=== PATIENT | female | born 1955 | race Caucasian/White ===

== ENCOUNTER 2023-05-04 10:38 | Outpatient (OUT) | payer MEDICARE, BC, SELFPAY ==
--- NOTE | 2023-05-04 10:47 | MM_ITS ---
Patient Name: TARIQ CHRISTINA MR#: [id number] : 1955 Exam Date: 05/04/2023 Ordering Doctor: MR. Fercho Louis PA-C RADIOLOGY REPORT PROCEDURE: MM TOMOSYNTHESIS SCREENING BI COMPARISON: MG MAMM SCREEN 3D HOMER CAD, 05/02/2022. MG MAMM SCREEN 3D HOMER CAD, 04/21/2021. MG MAMM SCREEN HOMER W CAD, 02/09/2020. MG MAMM HOMER SCRN W CAD DIG, 12/09/2012. INDICATIONS: Screening Calculator Name NCI Breast Cancer Risk Assessment Tool 5 Year Breast Cancer Risk 1.70% Lifetime Breast Cancer Risk 5.70% Personal Breast Cancer No Personal Ovarian Cancer No Treatments None Family Cancers Mother with leukemia cancer at age 74. LOCATION: [facility] BREAST COMPOSITION: Scattered areas fibroglandular density. FINDINGS: DIAGNOSTIC CATEGORY 1--NEGATIVE. RIGHT BREAST: No significant suspicious finding. No significant change has occurred. LEFT BREAST: No significant suspicious finding. No significant change has occurred. RECOMMENDATIONS: ROUTINE MAMMOGRAM AND CLINICAL EVALUATION IN 12 MONTHS. PLEASE NOTE: A NORMAL MAMMOGRAM DOES NOT EXCLUDE THE POSSIBILITY OF BREAST CANCER. A CLINICALLY SUSPICIOUS PALPABLE LUMP SHOULD BE BIOPSIED. Dictated by: Elliott Pedroza M.D. on 05/04/2023 at 14:46 Approved by: Elliott Pedroza M.D. on 05/04/2023 at 14:49
== END 2023-05-04 10:39 | disposition home or self-care (01) ==
LOC: MAMMO 10:40
PROVIDERS: PCP Physician Assistant; Visit Provider Physician Assistant
DX: Z12.31 Encounter for screening mammogram for malignant neoplasm of breast (principal); Z80.6 Family history of leukemia
CPT/HCPCS: 77063; 77067

== ENCOUNTER 2024-06-10 11:04 | Outpatient (OUT) | payer MEDICARE, BC, SELFPAY ==
--- NOTE | 2024-06-10 11:07 | MM_ITS ---
Patient Name: TARIQ CHRISTINA MR#: [id number] : 1955 Exam Date: 06/10/2024 Ordering Doctor: Non-Staff Physician RADIOLOGY REPORT PROCEDURE: MM TOMOSYNTHESIS SCREENING BI COMPARISON: MM TOMOSYNTHESIS SCREENING BI, 05/04/2023. MG MAMM SCREEN 3D HOMER CAD, 05/02/2022. INDICATIONS: Screening Calculator Name NCI Breast Cancer Risk Assessment Tool 5 Year Breast Cancer Risk 1.70% Lifetime Breast Cancer Risk 5.50% Personal Breast Cancer No Personal Ovarian Cancer No Treatments None Family Cancers Mother with leukemia cancer at age 74. LOCATION: [facility] BREAST COMPOSITION: There are scattered areas of fibroglandular density. FINDINGS: DIAGNOSTIC CATEGORY 1--NEGATIVE. NO CHANGE FROM COMPARISON ASSESSMENT. Scattered benign-appearing calcifications are present. Scattered benign-appearing lymph nodes are present. RIGHT BREAST: No significant suspicious finding. LEFT BREAST: No significant suspicious finding. RECOMMENDATIONS: ROUTINE MAMMOGRAM AND CLINICAL EVALUATION IN 12 MONTHS. PLEASE NOTE: A NORMAL MAMMOGRAM DOES NOT EXCLUDE THE POSSIBILITY OF BREAST CANCER. A CLINICALLY SUSPICIOUS PALPABLE LUMP SHOULD BE BIOPSIED. Dictated by: Nato Reynolds MD on 06/10/2024 at 12:52 Approved by: Nato Reynolds MD on 06/10/2024 at 12:53
--- OUTSIDE RECORDS SUMMARY | 2024-06-10 11:19 | XMS_ITS | CCD ---
Author Organization [facility] CliniSyri Care Team Providers Care Cut Out Press Operator Name Role Phone DR LETICIA ROBERTS Admitting Unavailable ALEJANDRA, DR KELLY Attending Unavailable ALEJANDRA, DR KELLY Primary Care Unavailable ALEJANDRA, DR KELLY Consulting Unavailable [place], DR NOE Flores Consulting Unavailable NO PCP, NO PCP Primary Care Unavailable SUZIE OSCAR Attending Unavailable DEBBIE ADLER Admitting Unavailable GREGG FUENTES Consulting Unavailable EHSAN CAGLE Consulting Unavailhuang e FREDIS AGUIRRE Consulting Unavailable RICH VENTURA Consulting Unavailable SALONI DAI Referring Unavailable NO PCP, NO PCP Primary Care Unavailable ALIZE TUCKER Referring Unavailable NO PCP, NO PCP Primary Care Unavailable RAMONA HUANG Admitting Unavailabl e RAMONA HUANG Attending Unavailabl e NO PCP, NO PCP Primary Care Unavailable FREDDY DELATORRE Consulting Unavailable NILSA VANN Referring Unavailable NO PCP, NO PCP Primary Care Unavailable SALONI DAI Attending Unavailable NO PCP, NO PCP Primary Care Unavailable SALONI DAI Attending Unavailable SALONI DAI Referring Unavailable NO PCP, NO PCP Primary Care Unavailable WEININGER, ARMIN Y Referring Unavailable ERLINDAINGER, ARMIN Y Primary Care Unavailable Lynn Brown Attending Hortencia Louis PA-C, Fercho Espinosa Primary Care Mor Rajput MD, Fercho Bates Attending Mor Louis PA-C, Fercho Espinosa Primary Care Mor Louis PA-C, Fercho Espinosa Primary Care Mor Rajput MD, Fercho Bates Attending Mor Louis PA-C, Fercho Espinosa Primary Care Mor Rajput MD, Fercho Bates Attending Mor Rajput MD, Fercho Bates Attending Mor Louis PA-C, Fercho Espinosa Primary Care Mor Rajput MD, Fercho Bates Attending Mor Louis PA-C, Fercho Espinosa Primary [facility] Mor Rajput MD, Fercho Bates Attending Mor Louis PA-C, Fercho Espinosa Primary Care Mor Rajput MD, Fercho Baets Attending Mor Louis PA-C, Fercho Espinosa Primary Care Mor Mckoy CHANNELER INSOLE-SPECIAL EFFECTS SPECIALIST, Lynn Cota Attending Hortencia DRAPERC, Fercho Espinosa Primary Care Mor Mckoy CHANNELER INSOLE-SPECIAL EFFECTS SPECIALIST, Lynn Cota Attending Hortencia DRAPREC, Fercho Espinosa Primary Care Mor Mckoy CHANNELER INSOLE-SPECIAL EFFECTS SPECIALIST, Lynn Cota Attending Hortencia DRAPERC, Fercho Espinosa Primary Care Mor gifford Allergies Allergy Classification Reported Allergen(s) Allergy Type Date of Onset Reaction(s) Facility (3 sources) Penicillins; Translations: [PENICILLINS] Propensity to adverse reactions to drug (disorder) [facility] Repository Problems Active Problems Problem Classification Problem Date Documented Date Episodic/Chronic Disorders of lipid metabolism (1 source) Hyperlipidemia, unspecified; Translations: [Hyperlipidemia, unspecified] Onset: 05-12-2024 Chronic Essential hypertension (1 source) Essential (primary) hypertension; Translations: [Essential (primary) hypertension] Onset: 05-12-2024 Chronic Other nervous system disorders (1 source) Difficulty in walking, not elsewhere classified; Translations: [Difficulty in walking, not elsewhere classified] Onset: 01-30-2024 Chronic Other screening for suspected conditions (not mental disorders or infectious disease) (4 sources) Encounter for screening mammogram for malignant neoplasm of breast; Translations: [ENC SCR MAMMO MALIG NEOPLASM BREAST] Onset: 05-02-2022 Episodic Paralysis (1 source) Cauda equina syndrome; Translations: [Cauda equina syndrome] Onset: 01-25-2024 Chronic Residual codes; unclassified (1 source) Family history of leukemia; Translations: [FAMILY HISTORY OF LEUKEMIA] Onset: 05-07-2022 Episodic Spondylosis; intervertebral disc disorders; other back problems (1 source) Other intervertebral disc displacement, lumbosacral region; Translations: [Other intervertebral disc displacement, lumbosacral region] Onset: 01-29-2024 Chronic Unclassified (1 source) Angelina Carrasco Onset: 01-23-2024 Past or Other Problems Problem Classification Problem Date Documented Date Episodic/Chronic Genitourinary symptoms and ill-defined conditions (1 source) Retention of urine, unspecified; Translations: [Retention of urine, unspecified] Onset: 01-23-2024 Episodic Other connective tissue disease (2 sources) Other symptoms and signs involving the musculoskeletal system; Translations: [Other symptoms and signs involving the musculoskeletal system] Onset: 01-23-2024 Episodic Spondylosis; intervertebral disc disorders; other back problems (4 sources) Radiculopathy, site unspecified; Translations: [Backache] Onset: 01-23-2024 Episodic Results Test Name Value Interpretation Reference Range [facility] Pain Management Office/Clini c Noteon 05-27-2024 Pain Management Office/Clinic Note Chief Complaint rigth leg and bilateral foot pain History of Present Illness Patient presents today for evaluation regarding chronic low back pain pain into right buttock. Patient underwent the second and a course of 2 diagnostic bilateral L4-5, L5-S1 DMR block May 14, 2024 and reports greater than 80% improvement of pain initially in the 2 to 4-hour diagnostic timeframe. Specifically, patient had rated preoperative pain on a scale of 0-10 as an 8 with reduction of pain to a 1 following DMR block with relief lasting approximately 4 hours. Patient reports pain returned to baseline at hour 5 Patient has engaged in a 6 week course of provider directed, home based physiological therapies within the last 3 months. In addition, a six-week trial of activity modification has failed to give reprieve. Patient has also failed to respond optimally to oral analgesic regimen Oswestry Disability Form AM Behavior: Same PM Pain Intensity: The pain is moderate at the moment PM Opioid prescription status Date: 11/01/17 Day Progresses Behavior: Same PM Personal Care: I can look after myself but it causes extra pain PM Last utox: none PM Behavior: Same PM Sitting: I can only sit in my favorite chair as long as I like PM Last ORT/Med Mgmt Agreement: 02/14/24 Pain location and laterality: rigth leg and bilateral foot pain PM Pain Lifting: Pain prevents me from lifting heavy weights off the floor, but I can manage if they are conveniently placed eg. on a table Pain quality: Burning PM Walking: Pain prevents me from walking more than 1 mile Pain Pattern: Constant PM Standing: Pain prevents me from standing form more than 1 hour Pain rate at rest: 4 PM Sleeping: My sleep is occasionally disturbed by pain Pain rate with activity: 5 PM Sex Life: My sex life is normal and causes no pain/NA Sitting: Alleviating PM Social Life: Pain has restricted my social life and I do not go out as often Standing: Aggravating PM Traveling: Pain is bad, but I manage journeys over 2 hours Walking: Aggravating PM Oswestry Score: 30 Sensory impairment location: numbness/tingling at times bilateral foot PM Oswestry Score Interpretation: 21% to 40% Moderate Disability: The patient experiences more pain and difficulty with travel, social life, sitting, lifting and standing, and may be disabled from work. The patient can usually be managed by conservative means. Pain since last visit: Unchanged Procedure 1: Diagnostic facet inj/DMR/MBB Procedure Date 1: 05/14/24 Procedure Comments 1: BILATERAL L4-5, L5-S1 DORSAL MEDIAL BRANCH BLOCK INJECTION Pain Improvement 1: Significant (70-100% relief) Pain Improvement Comments 1: 90% RELEIF X4 HOURS Date Tens: n/a Date Chiropractor: hx Effective Chiropractor: NO HELP Date PT: hx Frequency PT: 1x wk Effective PT: MADE IT WORSE, NO HELP Date Injections: prn Effective Injections: cervical RFA 2017, helpful Date Surgery: n/a Comments Other: HEP-stretching Recent testing: No Loss of bladder/bowel: Denies Demeanor: Pleasant Distress: None Appearance: Appropriate Cognitive impairment: No Feels safe at home: Yes Suicidal/homicidal ideation: No Review of Systems A review of systems was conducted and noted to be negative to the patients presenting complaint unless delineated in HPI. Full details are available on form PM-82 completed by the patient and added to the record on today?s date Denies loss of control of bowel and bladder or saddle paresthesia. Denies suicidal ideation or plan Physical Exam Vitals & Measurements HR: 76 (Peripheral) RR: 16 BP: 131/88 HT: 167 cm General -Appears stated age. No apparent distress. Psychological - Normal mood and affect. HEENT - Normocephalic/Atraumat ic Neurologic-alert and oriented x4 Respiratory - No obvious distress, No shortness of breath. Focus exam- is able to transition from sitting to standing without difficulty walks with a nonantalgic gait. Motor strength 5/5 in all areas assessed in the bilateral lower extremities. Sensory testing intact L1 through S1. Patient does report an increase in low back pain with lumbar facet loading maneuvers, concordant with pain symptoms, which localizes approximate L4 5 and L5-S1 bilaterally Additional Vitals BP Position/Location: Sitting Assessment/Plan 1. Lumbosacral spondylosis evaluated today for chronic low back pain secondary to lumbosacral spondylosis. Physical exam findings suggestive patient's pain is mechanical in nature with pain that exacerbates with axial loading maneuvers. Patient garnered 80 to 90% improvement of his lumbar pain in initial diagnostic timeframe consistent with anesthetic agent utilized Therefore, patient has establish candidacy for bilateral L4-5, L5-S1 radiofrequency ablation to be performed under fluoroscopic guidance Patient meets criteria for repeat lumbar radiofrequency ablation at bilateral L4-5, L5-S1 on the basis of: 1. Patient garnered 80% improvement of pain (more content not included)... Normal [facility] COMPLETE BLOOD COUNTon 05-12 Erythrocyte distribution width (RBC) [Ratio] 13.5 % Normal 11.5-15.0 [facility] Comment on above: Performed By: #### C CARA [facility], 31616-2 #### [facility] ([id number]) [address] [place] [address] Hematocrit (Bld) [Volume fraction] 40.3 % Normal 35-47 [facility] Comment on above: Performed By: #### Hemant MARROQUIN [facility], 96790-2 #### [facility] ([id number]) [address], [address] [place] [address] Hemoglobin (Bld) [Mass/Vol] 13.7 g/dL Normal 11.7-15.5 [facility] Comment on above: Performed By: #### Hemant MARROQUIN [facility], 20886-9 #### [facility] ([id number]) [address], [address] [place] [address] MCH (RBC) [Entitic mass] 32.7 pg Normal 27-34 [facility] Comment on above: Performed By: #### Hemant MARROQUIN CMP, 16777-6 #### [facility] ([id number]) [address], [address] [place] [address] MCHC (RBC) [Mass/Vol] 33.9 g/dL Normal 32-36 [facility] Comment on above: Performed By: #### Hemant MARROQUIN CMP, 42139-4 #### [facility] ([id number]) [address], [address] [place] [address] MCV (RBC) [Entitic vol] 96 fL Normal 80-100 [facility] Comment on above: Performed By: #### Hemant MARROQUIN CMP, 26062-5 #### [facility] ([id number]) [address], [address] [place] [address] Platelet mean volume (Bld) [Entitic vol] 8.5 fL Normal 7-12 [facility] Comment on above: Performed By: #### Hemant MARROQUIN CMP, 45227-6 #### [facility] ([id number]) [address], [address] [place] [address] Platelets (Bld) [#/Vol] 252 10*3/uL Normal 150-450 [facility] Comment on above: Performed By: #### Hemant MARROQUIN CMP, 50698-5 #### [facility] ([id number]) [address], [address] [place] [address] RBC COUNT 4.19 X10E12/L Normal 3.80-5.20 [facility] Comment on above: Performed By: #### Hemant MARROQUIN CMP, 64516-0 #### [facility] ([id number]) [address], [address] [place] [address] WBC (Bld) [#/Vol] 5.7 10*3/uL Normal 4.0-11.0 [facility] Comment on above: Performed By: #### C BC, CMP, 42906-7 #### [facility] ([id number]) [address], [address] [place] [address] COMPREHENSIVE METABOLIC PANE Dorian 05-12-2024 Albumin [Mass/Vol] 4.0 g/dL Normal 3.2-5.3 [facility] Comment on above: Performed By: #### Hemant MARROQUIN, CMP, 40292-4 #### [facility] ([id number]) [address], [address] [place] [address] ALP [Catalytic activity/Vol] 74 U/L Normal 39-130 [facility] Comment on above: Performed By: #### Hemant MARROQUIN CMP, 93780-0 #### [facility] ([id number]) [address], [address] [place] [address] ALT [Catalytic activity/Vol] 13 U/L Normal 0-31 [facility] Comment on above: Performed By: #### Hemant MARROQUIN, CMP, 30452-4 #### [facility] ([id number]) [address], [address] [place] [address] Anion gap [Moles/Vol] 8 mmol/L Normal 5-15 [facility] Comment on above: Performed By: #### Hemant MARROQUIN CMP, 04370-7 #### [facility] ([id number]) [address], [address] [place] [address] AST [Catalytic activity/Vol] 13 U/L Normal 0-41 [facility] Comment on above: Performed By: #### Hemant MARROQUIN, CMP, 44950-5 #### [facility] ([id number]) [address], [address] [place] [address] Bilirubin [Mass/Vol] 0.4 mg/dL Normal 0.3-1.2 [facility] Comment on above: Performed By: #### Hemant MARROQUIN, CMP, 64801-4 #### [facility] ([id number]) [address], [address] [place] [address] Calcium [Mass/Vol] 9.1 mg/dL Normal 8.5-10.5 [facility] Comment on above: Performed By: #### Hemant MARROQUIN CMP, 43098-6 #### [facility] ([id number]) [address], [address] [place] [address] Chloride [Moles/Vol] 104 mmol/L Normal 98-109 [facility] Comment on above: Performed By: #### Hemant MARROQUIN CMP, 95949-5 #### [facility] ([id number]) [address], [address] [place] [address] CO2 [Moles/Vol] 28 mmol/L Normal 22-32 [facility] Comment on above: Performed By: #### Hemant MARROQUIN CMP, 96793-7 #### [facility] ([id number]) [address], [address] [place] [address] Creatinine [Mass/Vol] 0.80 mg/dL Normal 0.40-1.00 [facility] Comment on above: Result Comment: METH OD TRACEABLE TO IDMS STANDARD Performed By: #### Hemant MARROQUIN CMP, 70974-1 #### [facility] ([id number]) [address], [address] [place] [address] GFR/1.73 sq M.predicted among non-blacks MDRD (S/P/Bld) [Vol rate/Area] 80 mL/min/{1.73_m2} Normal >59 [facility] Comment on above: Result Comment: Reported eGFR is based on the CKD-EPI 2020 equation that does not use a race coefficient. Performed By: #### Hemant MARROQUIN CMP, 64219-6 #### [facility] ([id number]) [address], [address] [place] [address] Glucose [Mass/Vol] 103 mg/dL High 65-99 [facility] Comment on above: Performed By: #### Hemant BC, CMP, 64383-6 #### [facility] ([id number]) [address], [address] [place] [address] Potassium [Moles/Vol] 3.7 mmol/L Normal 3.5-5.0 [facility] Comment on above: Performed By: #### Hemnat BC, CMP, 14618-7 #### [facility] ([id number]) [address] [place] [address] Protein [Mass/Vol] 6.6 g/dL Normal 6.0-8.0 [facility] Comment on above: Performed By: #### Hemant BC, CMP, 50480-4 #### [facility] ([id number]) [address], [address] [place] [address] Sodium [Moles/Vol] 140 mmol/L Normal 134-146 [facility] Comment on above: Performed By: #### Hemant BC, CMP, 15864-9 #### [facility] ([id number]) [address], [address] [place] [address] Urea nitrogen [Mass/Vol] 12 mg/dL Normal 5-27 [facility] Comment on above: Performed By: #### Hemant BC, CMP, 88384-9 #### [facility] ([id number]) [address] [place] [address] Lipid 1996 panelon 4 Cholesterol [Mass/Vol] 226 mg/dL High 150-200 [facility] Comment on above: Performed By: #### Hemant BC, CMP, 00666-9 #### [facility] ([id number]) [address], [address] [place] [address] Cholesterol in HDL [Mass/Vol] 57 mg/dL Normal >39 [facility] Comment on above: Result Comment: HDL <40 mg/dL - High Risk HDL > or = 40mg/dL- Desirable HDL >60 mg/dL - Negative Risk Performed By: #### Hemant MARROQUIN, CMP, 73794-1 #### [facility] ([id number]) [address], [address] [place] [address] Cholesterol in LDL [Mass/Vol] 118 mg/dL Normal <130 [facility] Comment on above: Result Comment: LDL <100 mg/dL - Desirable LDL >160 mg/dL - High Risk Performed By: #### Hemant MARROQUIN, CMP, 34934-4 #### [facility] ([id number]) [address], [address] [place] [address] Cholesterol in VLDL [Mass/Vol] 51 mg/dL High 0-30 [facility] Comment on above: Performed By: #### Hemant MARROQUIN, SINGH, 91680-3 #### [facility] ([id number]) [address], [address] [place] [address] CHOLESTEROL:HDL 4.0 Normal 1.0-5.0 [facility] Comment on above: Performed By: #### Hemant MARROQUIN, SINGH, 06144-9 #### [facility] ([id number]) [address] [place] [address] Triglyceride [Mass/Vol] 253 mg/dL High 27-150 [facility] Comment on above: Performed By: #### Hemant MARROQUIN, CMP, 16646-9 #### [facility] ([id number]) [address] [place] [address] Pain Management Office/Clini c Noteon 04-29-2024 Pain Management Office/Clinic Note Chief Complaint low back, right buttock/leg & left lower leg pain History of Present Illness Patient presents today with chronic low back pain. Patient underwent the first of two bilateral L4-5, L5-S1 DMR on 04/16/2024 with 100% relief for the first 4 hours. On a scale of 0/10, patient reported preoperatively 7 out of 10 pain and postoperatively reports 0 out of 10 pain at hour 2 and 4. Return to baseline at hour 5. Patient has engaged in a 6 week course of provider directed, home based physiological therapies within the last 3 months. In addition, a six-week trial of activity modification has failed to give reprieve. Patient has also failed to respond optimally to oral analgesic regimen Oswestry Disability Form AM Behavior: Same PM Pain Intensity: The pain is moderate at the moment PM Opioid prescription status Date: 11/01/17 Day Progresses Behavior: Same PM Personal Care: I need some help but manage most of my personal care PM Last ORT/Med Mgmt Agreement: 02/14/24 PM Behavior: Same PM Sitting: I can only sit in my favorite chair as long as I like Pain location and laterality: low back, right buttock/leg & left lower leg pain PM Pain Lifting: I can lift very light weights Pain quality: Aching PM Walking: I can only walk using a stick or crutches Pain Pattern: Constant PM Standing: Pain prevents me from standing form more than 30 minutes Pain rate at rest: 4 PM Sleeping: My sleep is occasionally disturbed by pain Pain rate with activity: 5 PM Sex Life: My sex life is normal and causes no pain/NA Bending: Aggravating PM Social Life: Pain has restricted my social life and I do not go out as often Heat: Alleviating PM Traveling: Pain restricts me to trips of less than 1 hour Lifting: Aggravating PM Oswestry Score: 48 Lying: Alleviating PM Oswestry Score Interpretation: 41% to 60% Severe Disability: Pain remains the main problem in this group but activities of daily living are affected. These patients require a detailed investigation. Medications: Alleviating Standing: Aggravating Walking: Aggravating Sensory impairment location: numbness/tingling in right foot Pain since last visit: Improved Procedure 1: Other therapeutic Procedure Date 1: 04/01/24 Procedure Comments 1: BILATERAL CERVICAL TRIGGER POINT INJECTION Pain Improvement 1: Minimal (0-30% relief) Pain Improvement Comments 1: MINIMAL RELIEF X2 DAYS Procedure 2: Diagnostic facet inj/DMR/MBB Procedure Date 2: 04/16/24 Procedure Comments 2: BILATERAL L4-5, L5-S1 DORSAL MEDIAL BLOCK INJECTION Pain Improvement 2: Significant (70-100% relief) Pain Improvement Comments 2: 100% RELIEF X2 & 4 HOURS IN LOW BACK Date Tens: n/a Date Chiropractor: hx Date PT: hx Comments PT: HEP-stretching Date Injections: prn Date Surgery: n/a Recent testing: No Loss of bladder/bowel: Denies Demeanor: Pleasant Distress: None Appearance: Appropriate Cognitive impairment: No Feels safe at home: Yes Suicidal/homicidal ideation: No Review of Systems A review of systems was conducted and noted to be negative to the patients presenting complaint unless delineated in HPI. Full details are available on form PM-82 completed by the patient and added to the record on today?s date Denies loss of control of bowel and bladder or saddle paresthesia. Denies suicidal ideation or plan Physical Exam Vitals & Measurements HR: 95 (Peripheral) BP: 114/88 HT: 167 cm General -Appears stated age. No apparent distress. Psychological - Normal mood and affect. HEENT - Normocephalic/Atraumat ic Neurologic-alert and oriented x4 Respiratory - No obvious distress, No shortness of breath. Focus exam- is able to transition from sitting to standing without difficulty walks with a nonantalgic gait. Motor strength 5/5 in all areas assessed in the bilateral lower extremities. Sensory testing intact L1 through S1. Patient does report an increase in low back pain with lumbar facet loading maneuvers, concordant with pain symptoms, which localizes approximate L3 4, L4 5 and L5-S1 bilaterally Additional Vitals No qualifying data available. Assessment/Plan 1. Lumbosacral spondylosis Patient has chronic low back pain secondary to lumbosacral spondylosis. Patient underwent initial medial branch block of segmented L4/5, L5-S1 with greater than 80% improvement of pain reported in the initial timeframe consistent with anesthetic utilized. Therefore, patient has establish candidacy for second in a course of 2 diagnostic bilateral medial branch block of L4-5, L5-S1 segment performed under fluoroscopic guidance in an attempt to establish cause and candidacy for radiofrequency ablation 2. Chronic low back pain Medical Decision Making Chronic conditions NOT treated during this visit that affected my overall medical decision making: [HTN] I have reviewed the patient?s medication list for medication interactions/contraind ications and/or for upcoming procedures: [yes] Physici (more content not included)... [facility] Pain Management Office/Clini c Noteon 04-01-2024 Pain Management Office/Clinic Note Chief Complaint neck, low back and right foot pain History of Present Illness Patient presents today for evaluation regarding chronic cervical pain as well as low back pain. Patient underwent sciatic nerve block on the right 03/05/2024 additionally, patient underwent right lumbar TFESI February 20, 2024 reports significant improvement of right lower extremity pain. Patient does report residual low back pain severe enough to affect activities day living and quality of life. Additionally, patient reports some cervical muscle pain . Patient has engaged in a 6 week course of provider directed, home based physiological therapies within the last 3 months. In addition, a six-week trial of activity modification has failed to give reprieve. Patient has also failed to respond optimally to oral analgesic regimen Opioid Risk Assessment Oswestry Disability Form AM Behavior: Better Family History of Substance Abuse: Alcohol, Illegal drugs PM Pain Intensity: The pain is moderate at the moment PM Opioid prescription status Date: 11/01/17 Day Progresses Behavior: Worse Personal History of Substance Abuse: Alcohol PM Personal Care: It is painful to look after myself and I am slow and careful PM Last utox: none PM Behavior: Worse Age Between 16 and 45: No PM Sitting: I can only sit in my favorite chair as long as I like PM Last ORT/Med Mgmt Agreement: 02/14/24 Pain location and laterality: neck, low back and right foot pain History of Preadolescent Sexual Abuse: No PM Pain Lifting: I can lift very light weights Pain quality: Aching Mental Health Condition: No PM Walking: Pain prevents me from walking more than 1 mile Pain Pattern: Constant Depression: Yes PM Standing: Pain prevents me from standing form more than 30 minutes Pain rate at rest: 4 Total Opioid Risk Score: 7 PM Sleeping: My sleep is occasionally disturbed by pain Pain rate with activity: 5 Total Score Risk Category: Moderate risk PM Sex Life: My sex life is normal and causes no pain/NA Cold/Ice: Alleviating PM Social Life: Pain has restricted my social life to my home Heat: Alleviating PM Traveling: Pain restricts me to short necessary journeys under 30 minutes Performance of ADL's: Aggravating PM Oswestry Score: 44 Sitting: Alleviating PM Oswestry Score Interpretation: 41% to 60% Severe Disability: Pain remains the main problem in this group but activities of daily living are affected. These patients require a detailed investigation. Standing: Aggravating Sensory impairment location: numbness and tingling in right foot Procedure 1: Therapeutic nerve root/TFESI Procedure Date 1: 02/20/24 Procedure Comments 1: R L5, S1 Pain Improvement 1: Significant (70-100% relief) Procedure 2: Other therapeutic Procedure Date 2: 03/05/24 Procedure Comments 2: Right Sciatic nerve block Pain Improvement 2: Significant (70-100% relief) Date Tens: NO Date Chiropractor: HX Effective Chiropractor: NO HELP Date PT: presently Frequency PT: 1x wk Effective PT: MADE IT WORSE, NO HELP Date Injections: HX WITH KINDL IN [place] 2008 Effective Injections: cervical RFA 2017, helpful Date Surgery: NO Date Other: NECK BRACE Comments Other: HELPS Recent testing: No Loss of bladder/bowel: Denies Demeanor: Pleasant Distress: Moderate Appearance: Appropriate Cognitive impairment: No Feels safe at home: Yes Suicidal/homicidal ideation: No Family History of Substance Abuse: Alcohol, Illegal drugs Personal History of Substance Abuse: Alcohol Age Between 16 and 45: No History of Preadolescent Sexual Abuse: No Mental Health Condition: No Depression: Yes Total Opioid Risk Score: 7 Total Score Risk Category: Moderate risk Review of Systems A review of systems was conducted and noted to be negative to the patients presenting complaint unless delineated in HPI. Full details are available on form [id number] completed by the patient and added to the record on today?s date Denies loss of control of bowel and bladder or saddle paresthesia. Denies suicidal ideation or plan Physical Exam Vitals & Measurements HR: 71 (Peripheral) RR: 16 BP: 113/87 HT: 167 cm WT: 87 kg (Estimated) WT: 87 kg (Dosing) BMI: 31.2 General -Appears stated age. No apparent distress. Psychological - Normal mood and affect. HEENT - Normocephalic/Atraumat ic Neurologic-alert and oriented x4 Respiratory - No obvious distress, No shortness of breath. Palpatory tenderness cervical paravertebral musculature extending into trapezius/rhomboids with appreciated spasm Focus exam- is able to transition from sitting to standing without difficulty walks with a nonantalgic gait. Motor strength 5/5 in all areas assessed in the bilateral lower extremities. Sensory testing intact L1 through S1. Patient does report an increase in low back pain with lumbar facet loading maneuvers, concordant with pain symptoms, which localizes approximate L4 5 and L5-S1 bilaterally Additional Vitals (more content not included)... Normal [facility] CBC AND AUTO DIFFon 01-30-20 24 ABSOLUTE BASOPHIL 0.0 X10E9/L Normal 0.0-0.2 [facility] Comment on above: Performed By: #### C BCA, CMP ####[facility] ([id number])[address] ABSOLUTE NEUTROPHIL 4.0 X10E9/L Normal 1.5-6.6 [facility] Comment on above: Performed By: #### C CHRISTINA, CMP ####[facility] ([id number])[address] [address] [place] [address] Basophils/100 WBC (Bld) 0.5 % Normal [facility] Comment on above: Performed By: #### C BCA, CMP ####[facility] ([id number])[address] [address] Eosinophils (Bld) [#/Vol] 0.1 10*3/uL Normal 0.0-0.4 [facility] Comment on above: Performed By: #### C BCA, CMP ####[facility] ([id number])[address] [address] [place] [address] Eosinophils/100 WBC (Bld) 1.8 % Normal [facility] Comment on above: Performed By: #### C BCA, CMP ####[facility] ([id number])[address] [address] Erythrocyte distribution width (RBC) [Ratio] 13.0 % Normal 11.5-15.0 [facility] Comment on above: Performed By: #### C BCA, CMP ####[facility] ([id number])[address], [place] [address] Hematocrit (Bld) [Volume fraction] 38.2 % Normal 35-47 [facility] Comment on above: Performed By: #### C BCA, CMP ####[facility] ([id number])[address], [address], [place] [address] Hemoglobin (Bld) [Mass/Vol] 12.6 g/dL Normal 11.7-15.5 [facility] Comment on above: Performed By: #### C BCA, CMP ####[facility] ([id number])[address] [address] [place] [address] Lymphocytes (Bld) [#/Vol] 2.8 10*3/uL Normal 1.0-3.5 [facility] Comment on above: Performed By: #### C BCA, CMP ####[facility] ([id number])[address] [address], [place] [address] Lymphocytes/100 WBC (Bld) 37.1 % Normal [facility] Comment on above: Performed By: #### C BCA, CMP ####[facility] ([id number])[address] [address], [place] [address] MCH (RBC) [Entitic mass] 32.3 pg Normal 27-34 [facility] Comment on above: Performed By: #### C BCA, CMP ####[facility] ([id number])[address] [address] MCHC (RBC) [Mass/Vol] 33.1 g/dL Normal 32-36 [facility] Comment on above: Performed By: #### C BCA, CMP ####[facility] ([id number])[address], [address], [place] [address] MCV (RBC) [Entitic vol] 98 fL Normal 80-100 [facility] Comment on above: Performed By: #### C CHRISTINA, CMP ####[facility] ([id number])[address], [address], [place] [address] Monocytes (Bld) [#/Vol] 0.5 10*3/uL Normal 0-0.9 [facility] Comment on above: Performed By: #### C CHRISTINA, CMP ####[facility] ([id number])[address], [address], [place] [address] Monocytes/100 WBC (Bld) 6.8 % Normal [facility] Comment on above: Performed By: #### C CHRISTINA, CMP ####[facility] ([id number])[address], [address], [place] [address] Neutrophils/100 WBC (Bld) 53.8 % Normal [facility] Comment on above: Performed By: #### C CHRISTINA, CMP ####[facility] ([id number])[address], [address], [place] [address] Platelet mean volume (Bld) [Entitic vol] 8.8 fL Normal 7-12 [facility] Comment on above: Performed By: #### C CHRISTINA, CMP ####[facility] ([id number])[address] [address] [place] [address] Platelets (Bld) [#/Vol] 198 10*3/uL Normal 150-450 [facility] Comment on above: Performed By: #### C CHRISTINA, CMP ####[facility] ([id number])[address] [address] [place] [address] RBC COUNT 3.91 X10E12/L Normal 3.80-5.20 [facility] Comment on above: Performed By: #### C CHRISTINA, CMP ####[facility] ([id number])[address], [address], [place] [address] WBC (Bld) [#/Vol] 7.5 10*3/uL Normal 4.0-11.0 [facility] Comment on above: Performed By: #### C BCA, CMP ####[facility] ([id number])[address], [address], [place] [address] COMPREHENSIVE METABOLIC PANE Dorian 01-30-2024 Albumin [Mass/Vol] 3.8 g/dL Normal 3.2-5.3 [facility] Comment on above: Performed By: #### C BCA, CMP ####[facility] ([id number])[address], [address], [place] [address] ALP [Catalytic activity/Vol] 52 U/L Normal 39-130 [facility] Comment on above: Performed By: #### C BCA, CMP ####[facility] ([id number])[address], [address], [place] [address] ALT [Catalytic activity/Vol] 39 U/L High 0-31 [facility] Comment on above: Performed By: #### C BCA, CMP ####[facility] ([id number])[address], [address], [place] [address] Anion gap [Moles/Vol] 9 mmol/L Normal 5-15 [facility] Comment on above: Performed By: #### C BCA, CMP ####[facility] ([id number])[address], [address], [place] [address] AST [Catalytic activity/Vol] 28 U/L Normal 0-41 [facility] Comment on above: Performed By: #### C BCA, CMP ####[facility] ([id number])[address], [address], [place] [address] Bilirubin [Mass/Vol] 0.4 mg/dL Normal 0.3-1.2 [facility] Comment on above: Performed By: #### C BCA, CMP ####[facility] ([id number])[address] [address], [place] [address] Calcium [Mass/Vol] 8.9 mg/dL Normal 8.5-10.5 [facility] Comment on above: Performed By: #### C BCA, CMP ####[facility] ([id number])[address], [address], [place] [address] Chloride [Moles/Vol] 102 mmol/L Normal 98-109 [facility] Comment on above: Performed By: #### C BCA, CMP ####[facility] ([id number])[address] [address] [address] CO2 [Moles/Vol] 27 mmol/L Normal 22-32 [facility] Comment on above: Performed By: #### C BCA, CMP ####[facility] ([id number])[address] [address], [place] [address] Creatinine [Mass/Vol] 0.80 mg/dL Normal 0.40-1.00 [facility] Comment on above: Result Comment: METH OD TRACEABLE TO IDMS STANDARD Performed By: #### C BCA, CMP ####[facility] ([id number])[address] [address] [place] [address] GFR/1.73 sq M.predicted among non-blacks MDRD (S/P/Bld) [Vol rate/Area] 80 mL/min/{1.73_m2} Normal >59 [facility] Comment on above: Result Comment: Reported eGFR is based on the CKD-EPI 2020 equation that does not use a race coefficient. Performed By: #### C BCA, CMP ####[facility] ([id number])[address] [address], [place] [address] Glucose [Mass/Vol] 115 mg/dL High 65-99 [facility] Comment on above: Performed By: #### C BCA, CMP ####[facility] ([id number])[address], [address], [place] [address] Potassium [Moles/Vol] 3.9 mmol/L Normal 3.5-5.0 [facility] Comment on above: Performed By: #### C BCA, CMP ####[facility] ([id number])[address], [address] [place] [address] Protein [Mass/Vol] 6.1 g/dL Normal 6.0-8.0 [facility] Comment on above: Performed By: #### C BCA, CMP ####[facility] ([id number])[address] [address], [place] [address] Sodium [Moles/Vol] 138 mmol/L Normal 134-146 [facility] Comment on above: Performed By: #### C BCA, CMP ####[facility] ([id number])[address] [address], [place] [address] Urea nitrogen [Mass/Vol] 19 mg/dL Normal 5-27 [facility] Comment on above: Performed By: #### C BCA, CMP ####[facility] ([id number])[address] [address], [place] [address] CBC AND AUTO DIFFon 01-29-20 24 ABSOLUTE BASOPHIL 0.0 X10E9/L Normal 0.0-0.2 [facility] Comment on above: Performed By: #### C BCA, CMP ####[facility] ([id number])[address], [address] [place] [address] ABSOLUTE NEUTROPHIL 4.9 X10E9/L Normal 1.5-6.6 [facility] Comment on above: Performed By: #### C BCA, CMP ####[facility] ([id number])[address], [address] [place] [address] Basophils/100 WBC (Bld) 0.3 % Normal [facility] Comment on above: Performed By: #### C CHRISTINA, CMP ####[facility] ([id number])[address] [address] Eosinophils (Bld) [#/Vol] 0.1 10*3/uL Normal 0.0-0.4 [facility] Comment on above: Performed By: #### C CHRISTINA, CMP ####[facility] ([id number])[address] [address] Eosinophils/100 WBC (Bld) 1.2 % Normal [facility] Comment on above: Performed By: #### C CHRISTINA, CMP ####[facility] ([id number])[address] [address] Erythrocyte distribution width (RBC) [Ratio] 13.2 % Normal 11.5-15.0 [facility] Comment on above: Performed By: #### C CHRISTINA, CMP ####[facility] ([id number])[address] [address] Hematocrit (Bld) [Volume fraction] 38.5 % Normal 35-47 [facility] Comment on above: Performed By: #### C CHRISTINA, CMP ####[facility] ([id number])[address] [address] Hemoglobin (Bld) [Mass/Vol] 13.0 g/dL Normal 11.7-15.5 [facility] Comment on above: Performed By: #### C CHRISTINA, CMP ####[facility] ([id number])[address] [address] Lymphocytes (Bld) [#/Vol] 3.1 10*3/uL Normal 1.0-3.5 [facility] Comment on above: Performed By: #### C CHRISTINA, CMP ####[facility] ([id number])[address] [place] [address] Lymphocytes/100 WBC (Bld) 34.9 % Normal [facility] Comment on above: Performed By: #### C BCA, CMP ####[facility] ([id number])[address] [place] [address] MCH (RBC) [Entitic mass] 32.4 pg Normal 27-34 [facility] Comment on above: Performed By: #### C BCA, CMP ####[facility] ([id number])[address], [address] [place] [address] MCHC (RBC) [Mass/Vol] 33.6 g/dL Normal 32-36 [facility] Comment on above: Performed By: #### C BCA, CMP ####[facility] ([id number])[address], [address] [place] [address] MCV (RBC) [Entitic vol] 96 fL Normal 80-100 [facility] Comment on above: Performed By: #### C BCA, CMP ####[facility] ([id number])[address] [address] [place] [address] Monocytes (Bld) [#/Vol] 0.7 10*3/uL Normal 0-0.9 [facility] Comment on above: Performed By: #### C BCA, CMP ####[facility] ([id number])[address], [address] [place] [address] Monocytes/100 WBC (Bld) 7.8 % Normal [facility] Comment on above: Performed By: #### C BCA, CMP ####[facility] ([id number])[address], [address] [place] [address] Neutrophils/100 WBC (Bld) 55.8 % Normal [facility] Comment on above: Performed By: #### C BCA, CMP ####[facility] ([id number])[address], [address] [address] Platelet mean volume (Bld) [Entitic vol] 8.6 fL Normal 7-12 [facility] Comment on above: Performed By: #### C BCA, CMP ####[facility] ([id number])[address], [address] [address] Platelets (Bld) [#/Vol] 203 10*3/uL Normal 150-450 [facility] Comment on above: Performed By: #### C BCA, CMP ####[facility] ([id number])[address], [address], [place] [address] RBC COUNT 4.00 X10E12/L Normal 3.80-5.20 [facility] Comment on above: Performed By: #### C BCA, CMP ####[facility] ([id number])[address] [address] [place] [address] WBC (Bld) [#/Vol] 8.8 10*3/uL Normal 4.0-11.0 [facility] Comment on above: Performed By: #### C BCA, CMP ####[facility] ([id number])[address], [address], [place] [address] COMPREHENSIVE METABOLIC PANE Dorian 01-29-2024 Albumin [Mass/Vol] 3.8 g/dL Normal 3.2-5.3 [facility] Comment on above: Performed By: #### C BCA, CMP ####[facility] ([id number])[address], [address] [place] [address] ALP [Catalytic activity/Vol] 54 U/L Normal 39-130 [facility] Comment on above: Performed By: #### C BCA, CMP ####[facility] ([id number])[address], [address], [place] [address] ALT [Catalytic activity/Vol] 38 U/L High 0-31 [facility] Comment on above: Performed By: #### C BCA, CMP ####[facility] ([id number])[address], [address], [place] [address] Anion gap [Moles/Vol] 10 mmol/L Normal 5-15 [facility] Comment on above: Performed By: #### C BCA, CMP ####[facility] ([id number])[address], [address], [place] [address] AST [Catalytic activity/Vol] 24 U/L Normal 0-41 [facility] Comment on above: Performed By: #### C BCA, CMP ####[facility] ([id number])[address], [address], [place] [address] Bilirubin [Mass/Vol] 0.3 mg/dL Normal 0.3-1.2 [facility] Comment on above: Performed By: #### C BCA, CMP ####[facility] ([id number])[address], [address], [place] [address] Calcium [Mass/Vol] 8.9 mg/dL Normal 8.5-10.5 [facility] Comment on above: Performed By: #### C BCA, CMP ####[facility] ([id number])[address], [address], [place] [address] Chloride [Moles/Vol] 100 mmol/L Normal 98-109 [facility] Comment on above: Performed By: #### C BCA, CMP ####[facility] ([id number])[address], [address], [place] [address] CO2 [Moles/Vol] 28 mmol/L Normal 22-32 [facility] Comment on above: Performed By: #### C BCA, CMP ####[facility] ([id number])[address] [address] [place] [address] Creatinine [Mass/Vol] 0.75 mg/dL Normal 0.40-1.00 [facility] Comment on above: Result Comment: METH OD TRACEABLE TO IDMS STANDARD Performed By: #### C BCA, CMP ####[facility] ([id number])[address] [address], [place] [address] GFR/1.73 sq M.predicted among non-blacks MDRD (S/P/Bld) [Vol rate/Area] 87 mL/min/{1.73_m2} Normal >59 [facility] Comment on above: Result Comment: Reported eGFR is based on the CKD-EPI 2020 equation that does not use a race coefficient. Performed By: #### C BCA, CMP ####[facility] ([id number])[address] [address] Glucose [Mass/Vol] 117 mg/dL High 65-99 [facility] Comment on above: Performed By: #### C BCA, CMP ####[facility] ([id number])[address] [address] Potassium [Moles/Vol] 3.8 mmol/L Normal 3.5-5.0 [facility] Comment on above: Performed By: #### C BCA, CMP ####[facility] ([id number])[address] [address] Protein [Mass/Vol] 6.3 g/dL Normal 6.0-8.0 [facility] Comment on above: Performed By: #### C BCA, CMP ####[facility] ([id number])[address] [address] Sodium [Moles/Vol] 138 mmol/L Normal 134-146 [facility] Comment on above: Performed By: #### C BCA, CMP ####[facility] ([id number])[address] [place] [address] Urea nitrogen [Mass/Vol] 23 mg/dL Normal 5-27 [facility] Comment on above: Performed By: #### C CHRISTINA, CMP ####[facility] ([id number])[address] [place] [address] Glucose Glucometer (BldC) [M ass/Vol]on 01-29-2024 Glucose [Mass/Vol] 127 mg/dL High 65-99 [facility] Glucose [Mass/Vol] 120 mg/dL High 65-99 [facility] CBC AND AUTO DIFFon 01-28-20 ABSOLUTE BASOPHIL 0.1 X10E9/L Normal 0.0-0.2 [facility] Comment on above: Performed By: #### C CHRISTINA, CMP ####[facility] ([id number])[address] [place] [address] ABSOLUTE NEUTROPHIL 4.1 X10E9/L Normal 1.5-6.6 [facility] Comment on above: Performed By: #### C CHRISTINA, CMP ####[facility] ([id number])[address], [place] [address] Basophils/100 WBC (Bld) 0.8 % Normal [facility] Comment on above: Performed By: #### C CHRISTINA, CMP ####[facility] ([id number])[address] [place] [address] Eosinophils (Bld) [#/Vol] 0.1 10*3/uL Normal 0.0-0.4 [facility] Comment on above: Performed By: #### C CHRISTINA, CMP ####[facility] ([id number])[address] [place] [address] Eosinophils/100 WBC (Bld) 1.1 % Normal [facility] Comment on above: Performed By: #### C CHRISTINA, CMP ####[facility] ([id number])[address] [address] Erythrocyte distribution width (RBC) [Ratio] 13.0 % Normal 11.5-15.0 [facility] Comment on above: Performed By: #### C BCA, CMP ####[facility] ([id number])[address] [place] [address] Hematocrit (Bld) [Volume fraction] 38.9 % Normal 35-47 [facility] Comment on above: Performed By: #### C CHRISTINA, CMP ####[facility] ([id number])[address] [place] [address] Hemoglobin (Bld) [Mass/Vol] 13.0 g/dL Normal 11.7-15.5 [facility] Comment on above: Performed By: #### C CHRISTINA, CMP ####[facility] ([id number])[address] [place] [address] Lymphocytes (Bld) [#/Vol] 3.1 10*3/uL Normal 1.0-3.5 [facility] Comment on above: Performed By: #### C BCA, CMP ####[facility] ([id number])[address] [place] [address] Lymphocytes/100 WBC (Bld) 38.9 % Normal [facility] Comment on above: Performed By: #### C BCA, CMP ####[facility] ([id number])[address] [place] [address] MCH (RBC) [Entitic mass] 32.7 pg Normal 27-34 [facility] Comment on above: Performed By: #### C BCA, CMP ####[facility] ([id number])[address] [place] [address] MCHC (RBC) [Mass/Vol] 33.5 g/dL Normal 32-36 [facility] Comment on above: Performed By: #### C BCA, CMP ####[facility] ([id number])[address], [place] [address] MCV (RBC) [Entitic vol] 98 fL Normal 80-100 [facility] Comment on above: Performed By: #### C BCA, CMP ####[facility] ([id number])[address] [place] [address] Monocytes (Bld) [#/Vol] 0.6 10*3/uL Normal 0-0.9 [facility] Comment on above: Performed By: #### C BCA, CMP ####[facility] ([id number])[address] [place] [address] Monocytes/100 WBC (Bld) 7.5 % Normal [facility] Comment on above: Performed By: #### C BCA, CMP ####[facility] ([id number])[address] [place] [address] Neutrophils/100 WBC (Bld) 51.7 % Normal [facility] Comment on above: Performed By: #### C BCA, CMP ####[facility] ([id number])[address], [place] [address] Platelet mean volume (Bld) [Entitic vol] 8.5 fL Normal 7-12 [facility] Comment on above: Performed By: #### C BCA, CMP ####[facility] ([id number])[address], [place] [address] Platelets (Bld) [#/Vol] 180 10*3/uL Normal 150-450 [facility] Comment on above: Performed By: #### C BCA, CMP ####[facility] ([id number])[address], [place] [address] RBC COUNT 3.99 X10E12/L Normal 3.80-5.20 [facility] Comment on above: Performed By: #### C BCA, CMP ####[facility] ([id number])[address], [place] [address] WBC (Bld) [#/Vol] 7.8 10*3/uL Normal 4.0-11.0 [facility] Comment on above: Performed By: #### C BCA, CMP ####[facility] ([id number])[address], [place] [address] COMPREHENSIVE METABOLIC PANE Dorian 2024 Albumin [Mass/Vol] 3.6 g/dL Normal 3.2-5.3 [facility] Comment on above: Performed By: #### C BCA, CMP ####[facility] ([id number])[address], [place] [address] ALP [Catalytic activity/Vol] 46 U/L Normal 39-130 [facility] Comment on above: Performed By: #### C BCA, CMP ####[facility] ([id number])[address] [address] ALT [Catalytic activity/Vol] 30 U/L Normal 0-31 [facility] Comment on above: Performed By: #### C BCA, CMP ####[facility] ([id number])[address], [address] [place] [address], [place] [address] Anion gap [Moles/Vol] 8 mmol/L Normal 5-15 [facility] Comment on above: Performed By: #### C BCA, CMP ####[facility] ([id number])[address] [place] [address] AST [Catalytic activity/Vol] 26 U/L Normal 0-41 [facility] Comment on above: Performed By: #### C BCA, CMP ####[facility] ([id number])[address] [address] [place] [address] Bilirubin [Mass/Vol] 0.3 mg/dL Normal 0.3-1.2 [facility] Comment on above: Performed By: #### C BCA, CMP ####[facility] ([id number])[address] [address] [place] [address] Calcium [Mass/Vol] 8.8 mg/dL Normal 8.5-10.5 [facility] Comment on above: Performed By: #### C BCA, CMP ####[facility] ([id number])[address] [address], [place] [address] Chloride [Moles/Vol] 101 mmol/L Normal 98-109 [facility] Comment on above: Performed By: #### C BCA, CMP ####[facility] ([id number])[address] [address] [place] [address] CO2 [Moles/Vol] 28 mmol/L Normal 22-32 [facility] Comment on above: Performed By: #### C BCA, CMP ####[facility] ([id number])[address] [address], [place] [address] Creatinine [Mass/Vol] 0.76 mg/dL Normal 0.40-1.00 [facility] Comment on above: Result Comment: METH OD TRACEABLE TO IDMS STANDARD Performed By: #### C BCA, CMP ####[facility] ([id number])[address] [address] [place] [address] GFR/1.73 sq M.predicted among non-blacks MDRD (S/P/Bld) [Vol rate/Area] 85 mL/min/{1.73_m2} Normal >59 [facility] Comment on above: Result Comment: Reported eGFR is based on the CKD-EPI 2020 equation that does not use a race coefficient. Performed By: #### C BCA, CMP ####[facility] ([id number])[address], [place] [address] Glucose [Mass/Vol] 121 mg/dL High 65-99 [facility] Comment on above: Performed By: #### C BCA, CMP ####[facility] ([id number])[address] [place] [address] Potassium [Moles/Vol] 4.1 mmol/L Normal 3.5-5.0 [facility] Comment on above: Performed By: #### C BCA, CMP ####[facility] ([id number])[address], [place] [address] Protein [Mass/Vol] 6.0 g/dL Normal 6.0-8.0 [facility] Comment on above: Performed By: #### C BCA, CMP ####[facility] ([id number])[address], [address], [place] [address] Sodium [Moles/Vol] 137 mmol/L Normal 134-146 [facility] Comment on above: Performed By: #### C BCA, CMP ####[facility] ([id number])[address] [place] [address] Urea nitrogen [Mass/Vol] 21 mg/dL Normal 5-27 [facility] Comment on above: Performed By: #### C BCA, CMP ####[facility] ([id number])[address], [place] [address] Glucose Glucometer (BldC) [M ass/Vol]on 2024 Glucose [Mass/Vol] 192 mg/dL High 65-99 [facility] Glucose [Mass/Vol] 178 mg/dL High 65-99 [facility] Glucose [Mass/Vol] 159 mg/dL High 65-99 [facility] Glucose [Mass/Vol] 124 mg/dL High 65-99 [facility] CBC AND AUTO DIFFon 01-27-20 24 ABSOLUTE BASOPHIL 0.0 X10E9/L Normal 0.0-0.2 [facility] Comment on above: Performed By: #### C CHRISTINA, CMP #### [facility] ([id number]) [address], [address] [place] [address] ABSOLUTE NEUTROPHIL 3.3 X10E9/L Normal 1.5-6.6 [facility] Comment on above: Performed By: #### C CHRISTINA, CMP #### [facility] ([id number]) [address], [address] [place] [address] Basophils/100 WBC (Bld) 0.4 % Normal [facility] Comment on above: Performed By: #### C CHRISTINA, CMP #### [facility] ([id number]) [address], [address] [place] [address] Eosinophils (Bld) [#/Vol] 0.0 10*3/uL Normal 0.0-0.4 [facility] Comment on above: Performed By: #### C CHRISTINA, CMP #### [facility] ([id number]) [address] [place] [address] Eosinophils/100 WBC (Bld) 0.6 % Normal [facility] Comment on above: Performed By: #### C CHRISTINA, CMP #### [facility] ([id number]) [address], [address] [place] [address] Erythrocyte distribution width (RBC) [Ratio] 13.0 % Normal 11.5-15.0 [facility] Comment on above: Performed By: #### C CHRISTINA, CMP #### [facility] ([id number]) [address] [place] [address] Hematocrit (Bld) [Volume fraction] 38.6 % Normal 35-47 [facility] Comment on above: Performed By: #### C BCA, CMP #### [facility] ([id number]) [address] [place] [address] Hemoglobin (Bld) [Mass/Vol] 13.1 g/dL Normal 11.7-15.5 [facility] Comment on above: Performed By: #### C BCA, CMP #### [facility] ([id number]) [address] [place] [address] Lymphocytes (Bld) [#/Vol] 2.6 10*3/uL Normal 1.0-3.5 [facility] Comment on above: Performed By: #### C BCA, CMP #### [facility] ([id number]) [address] [place] [address] Lymphocytes/100 WBC (Bld) 41.1 % Normal [facility] Comment on above: Performed By: #### C BCA, CMP #### [facility] ([id number]) [address] [place] [address] MCH (RBC) [Entitic mass] 32.7 pg Normal 27-34 [facility] Comment on above: Performed By: #### C BCA, CMP #### [facility] ([id number]) [address] [place] [address] MCHC (RBC) [Mass/Vol] 34.0 g/dL Normal 32-36 [facility] Comment on above: Performed By: #### C BCA, CMP #### [facility] ([id number]) [address] [place] [address] MCV (RBC) [Entitic vol] 96 fL Normal 80-100 [facility] Comment on above: Performed By: #### C BCA, CMP #### [facility] ([id number]) [address] [place] [address] Monocytes (Bld) [#/Vol] 0.4 10*3/uL Normal 0-0.9 [facility] Comment on above: Performed By: #### C BCA, CMP #### [facility] ([id number]) [address] [place] [address] Monocytes/100 WBC (Bld) 6.2 % Normal [facility] Comment on above: Performed By: #### C BCA, CMP #### [facility] ([id number]) [address], [address] [place] [address] Neutrophils/100 WBC (Bld) 51.7 % Normal [facility] Comment on above: Performed By: #### C CHRISTINA, CMP #### [facility] ([id number]) [address] [place] [address] Platelet mean volume (Bld) [Entitic vol] 8.6 fL Normal 7-12 [facility] Comment on above: Performed By: #### C BCA, CMP #### [facility] ([id number]) [address] [place] [address] Platelets (Bld) [#/Vol] 203 10*3/uL Normal 150-450 [facility] Comment on above: Performed By: #### C BCA, CMP #### [facility] ([id number]) [address] [place] [address] RBC COUNT 4.01 X10E12/L Normal 3.80-5.20 [facility] Comment on above: Performed By: #### C BCA, CMP #### [facility] ([id number]) [address] [place] [address] WBC (Bld) [#/Vol] 6.3 10*3/uL Normal 4.0-11.0 [facility] Comment on above: Performed By: #### C BCA, CMP #### [facility] ([id number]) [address] [place] [address] COMPREHENSIVE METABOLIC PANE Dorian 01-27-2024 Albumin [Mass/Vol] 3.7 g/dL Normal 3.2-5.3 [facility] Comment on above: Performed By: #### C BCA, CMP #### [facility] ([id number]) [address] [place] [address] ALP [Catalytic activity/Vol] 49 U/L Normal 39-130 [facility] Comment on above: Performed By: #### C BCA, CMP #### [facility] ([id number]) [address] [place] [address] ALT [Catalytic activity/Vol] 23 U/L Normal 0-31 [facility] Comment on above: Performed By: #### C BCA, CMP #### [facility] ([id number]) [address] [place] [address] Anion gap [Moles/Vol] 9 mmol/L Normal 5-15 [facility] Comment on above: Performed By: #### C BCA, CMP #### [facility] ([id number]) [address] [place] [address] AST [Catalytic activity/Vol] 22 U/L Normal 0-41 [facility] Comment on above: Performed By: #### C BCA, CMP #### [facility] ([id number]) [address] [place] [address] Bilirubin [Mass/Vol] 0.3 mg/dL Normal 0.3-1.2 [facility] Comment on above: Performed By: #### C BCA, CMP #### [facility] ([id number]) [address] [place] [address] Calcium [Mass/Vol] 9.0 mg/dL Normal 8.5-10.5 [facility] Comment on above: Performed By: #### C BCA, CMP #### [facility] ([id number]) [address] [place] [address] Chloride [Moles/Vol] 102 mmol/L Normal 98-109 [facility] Comment on above: Performed By: #### C BCA, CMP #### [facility] ([id number]) [address] [place] [address] CO2 [Moles/Vol] 28 mmol/L Normal 22-32 [facility] Comment on above: Performed By: #### C BCA, CMP #### [facility] ([id number]) [address] [place] [address] Creatinine [Mass/Vol] 0.81 mg/dL Normal 0.40-1.00 [facility] Comment on above: Result Comment: METH OD TRACEABLE TO IDMS STANDARD Performed By: #### C BCA, CMP #### [facility] ([id number]) [address] [place] [address] GFR/1.73 sq M.predicted among non-blacks MDRD (S/P/Bld) [Vol rate/Area] 80 mL/min/{1.73_m2} Normal >59 [facility] Comment on above: Result Comment: Reported eGFR is based on the CKD-EPI 2020 equation that does not use a race coefficient. Performed By: #### C BCA, CMP #### [facility] ([id number]) [address] [place] [address] Glucose [Mass/Vol] 125 mg/dL High 65-99 [facility] Comment on above: Performed By: #### C BCA, CMP #### [facility] ([id number]) [address] [place] [address] Potassium [Moles/Vol] 4.0 mmol/L Normal 3.5-5.0 [facility] Comment on above: Performed By: #### C BCA, CMP #### [facility] ([id number]) [address] [place] [address] Protein [Mass/Vol] 6.3 g/dL Normal 6.0-8.0 [facility] Comment on above: Performed By: #### C BCA, CMP #### [facility] ([id number]) [address] [place] [address] Sodium [Moles/Vol] 139 mmol/L Normal 134-146 [facility] Comment on above: Performed By: #### C BCA, CMP #### [facility] ([id number]) [address] [place] [address] Urea nitrogen [Mass/Vol] 22 mg/dL Normal 5-27 [facility] Comment on above: Performed By: #### C BCA, CMP #### [facility] ([id number]) [address] [place] [address] Glucose Glucometer (BldC) [M ass/Vol]on 01-27-2024 Glucose [Mass/Vol] 138 mg/dL High 65-99 [facility] Glucose [Mass/Vol] 170 mg/dL High 65-99 [facility] Glucose [Mass/Vol] 202 mg/dL High 65-99 [facility] Glucose [Mass/Vol] 117 mg/dL High 65-99 [facility] CBC AND AUTO DIFFon 01-26-20 24 ABSOLUTE BASOPHIL 0.0 X10E9/L Normal 0.0-0.2 [facility] Comment on above: Performed By: #### C BCA, CMP #### [facility] ([id number]) [address] [place] [address] ABSOLUTE NEUTROPHIL 4.6 X10E9/L Normal 1.5-6.6 [facility] Comment on above: Performed By: #### C BCA, CMP #### [facility] ([id number]) [address] [place] [address] Basophils/100 WBC (Bld) 0.5 % Normal [facility] Comment on above: Performed By: #### C CHRISTINA, CMP #### [facility] ([id number]) [address] [place] [address] Eosinophils (Bld) [#/Vol] 0.0 10*3/uL Normal 0.0-0.4 [facility] Comment on above: Performed By: #### C CHRISTINA, CMP #### [facility] ([id number]) [address] [place] [address] Eosinophils/100 WBC (Bld) 0.0 % Normal [facility] Comment on above: Performed By: #### C CHRISTINA, CMP #### [facility] ([id number]) [address] [place] [address] Erythrocyte distribution width (RBC) [Ratio] 12.8 % Normal 11.5-15.0 [facility] Comment on above: Performed By: #### C CHRISTINA, CMP #### [facility] ([id number]) [address] [place] [address] Hematocrit (Bld) [Volume fraction] 39.9 % Normal 35-47 [facility] Comment on above: Performed By: #### C CHRISTINA, CMP #### [facility] ([id number]) [address] [place] [address] Hemoglobin (Bld) [Mass/Vol] 13.4 g/dL Normal 11.7-15.5 [facility] Comment on above: Performed By: #### C CHRISTINA, CMP #### [facility] ([id number]) [address] [place] [address] Lymphocytes (Bld) [#/Vol] 2.8 10*3/uL Normal 1.0-3.5 [facility] Comment on above: Performed By: #### C BCA, CMP #### [facility] ([id number]) [address] [place] [address] Lymphocytes/100 WBC (Bld) 35.3 % Normal [facility] Comment on above: Performed By: #### C BCA, CMP #### [facility] ([id number]) [address] [place] [address] MCH (RBC) [Entitic mass] 32.4 pg Normal 27-34 [facility] Comment on above: Performed By: #### C BCA, CMP #### [facility] ([id number]) [address] [place] [address] MCHC (RBC) [Mass/Vol] 33.5 g/dL Normal 32-36 [facility] Comment on above: Performed By: #### C BCA, CMP #### [facility] ([id number]) [address] [place] [address] MCV (RBC) [Entitic vol] 97 fL Normal 80-100 [facility] Comment on above: Performed By: #### C BCA, CMP #### [facility] ([id number]) [address] [place] [address] Monocytes (Bld) [#/Vol] 0.4 10*3/uL Normal 0-0.9 [facility] Comment on above: Performed By: #### C BCA, CMP #### [facility] ([id number]) [address] [place] [address] Monocytes/100 WBC (Bld) 5.3 % Normal [facility] Comment on above: Performed By: #### C BCA, CMP #### [facility] ([id number]) [address] [place] [address] Neutrophils/100 WBC (Bld) 58.9 % Normal [facility] Comment on above: Performed By: #### C BCA, CMP #### [facility] ([id number]) [address] [place] [address] Platelet mean volume (Bld) [Entitic vol] 9.0 fL Normal 7-12 [facility] Comment on above: Performed By: #### C BCA, CMP #### [facility] ([id number]) [address] [address] [place] [address] Platelets (Bld) [#/Vol] 212 10*3/uL Normal 150-450 [facility] Comment on above: Performed By: #### C BCA, CMP #### [facility] ([id number]) [address] [facility] [address] [place] [address] RBC COUNT 4.12 X10E12/L Normal 3.80-5.20 [facility] Comment on above: Performed By: #### C BCA, CMP #### [facility] ([id number]) [address] [facility] [address] [place] [address] WBC (Bld) [#/Vol] 7.8 10*3/uL Normal 4.0-11.0 [facility] Comment on above: Performed By: #### C BCA, CMP #### [facility] ([id number]) [address] [place] [address] [address]ANE [facility] 01-26-2024 Albumin [Mass/Vol] 3.9 g/dL Normal 3.2-5.3 [facility] Comment on above: Performed By: #### C BCA, CMP #### [facility] ([id number]) [address] [address] [place] [address] ALP [Catalytic activity/Vol] 51 U/L Normal 39-130 [facility] Comment on above: Performed By: #### C BCA, CMP #### [facility] ([id number]) [address] [place] [address] ALT [Catalytic activity/Vol] 19 U/L Normal 0-31 [facility] Comment on above: Performed By: #### C BCA, CMP #### [facility] ([id number]) [address], [address] [place] [address] Anion gap [Moles/Vol] 9 mmol/L Normal 5-15 [facility] Comment on above: Performed By: #### C BCA, CMP #### [facility] ([id number]) [address] [place] [address] AST [Catalytic activity/Vol] 18 U/L Normal 0-41 [facility] Comment on above: Performed By: #### C BCA, CMP #### [facility] ([id number]) [address] [place] [address] Bilirubin [Mass/Vol] 0.3 mg/dL Normal 0.3-1.2 [facility] Comment on above: Performed By: #### C BCA, CMP #### [facility] ([id number]) [address] [place] [address] Calcium [Mass/Vol] 9.0 mg/dL Normal 8.5-10.5 [facility] Comment on above: Performed By: #### C BCA, CMP #### [facility] ([id number]) [address] [place] [address] Chloride [Moles/Vol] 103 mmol/L Normal 98-109 [facility] Comment on above: Performed By: #### C BCA, CMP #### [facility] ([id number]) [address], [address] [place] [address] CO2 [Moles/Vol] 27 mmol/L Normal 22-32 [facility] Comment on above: Performed By: #### C BCA, CMP #### [facility] ([id number]) [address] [address] [place] [address] Creatinine [Mass/Vol] 0.74 mg/dL Normal 0.40-1.00 [facility] Comment on above: Result Comment: METH OD TRACEABLE TO IDMS STANDARD Performed By: #### C BCA, CMP #### [facility] ([id number]) [address], [address] [place] [address] GFR/1.73 sq M.predicted among non-blacks MDRD (S/P/Bld) [Vol rate/Area] 89 mL/min/{1.73_m2} Normal >59 [facility] Comment on above: Result Comment: Reported eGFR is based on the CKD-EPI 2020 equation that does not use a race coefficient. Performed By: #### C BCA, CMP #### [facility] ([id number]) [address] [address] [place] [address] Glucose [Mass/Vol] 124 mg/dL High 65-99 [facility] Comment on above: Performed By: #### C BCA, CMP #### [facility] ([id number]) [address] [place] [address] Potassium [Moles/Vol] 4.0 mmol/L Normal 3.5-5.0 [facility] Comment on above: Performed By: #### C BCA, CMP #### [facility] ([id number]) [address], [address] [place] [address] Protein [Mass/Vol] 6.6 g/dL Normal 6.0-8.0 [facility] Comment on above: Performed By: #### C BCA, CMP #### [facility] ([id number]) [address], [address] [place] [address] Sodium [Moles/Vol] 139 mmol/L Normal 134-146 [facility] Comment on above: Performed By: #### C BCA, CMP #### [facility] ([id number]) [address] [place] [address] Urea nitrogen [Mass/Vol] 22 mg/dL Normal 5-27 [facility] Comment on above: Performed By: #### C BCA, CMP #### [facility] ([id number]) [address] [place] [address] Glucose Glucometer (BldC) [M ass/Vol]on 01-26-2024 Glucose [Mass/Vol] 160 mg/dL High 65-99 [facility] Glucose [Mass/Vol] 142 mg/dL High 65-99 [facility] Glucose [Mass/Vol] 125 mg/dL High 65-99 [facility] Glucose [Mass/Vol] 119 mg/dL High 65-99 [facility] CBC AND AUTO DIFFon 01-25-20 ABSOLUTE BASOPHIL 0.0 X10E9/L Normal 0.0-0.2 [facility] Comment on above: Performed By: #### C CHRISTINA, CMP, HA1C #### [facility] ([id number]) [address], [address] [place] [address] ABSOLUTE NEUTROPHIL 6.9 X10E9/L High 1.5-6.6 [facility] Comment on above: Performed By: #### C CHRISTINA, CMP, HA1C #### [facility] ([id number]) [address], [address] [place] [address] Basophils/100 WBC (Bld) 0.3 % Normal [facility] Comment on above: Performed By: #### C CHRISTINA, CMP, HA1C #### [facility] ([id number]) [address] [place] [address] Eosinophils (Bld) [#/Vol] 0.0 10*3/uL Normal 0.0-0.4 [facility] Comment on above: Performed By: #### C CHRISTINA, CMP, HA1C #### [facility] ([id number]) [address] [place] [address] Eosinophils/100 WBC (Bld) 0.0 % Normal [facility] Comment on above: Performed By: #### C BCA, CMP, HA1C #### [facility] ([id number]) [address] [place] [address] Erythrocyte distribution width (RBC) [Ratio] 13.2 % Normal 11.5-15.0 [facility] Comment on above: Performed By: #### C BCA, CMP, HA1C #### [facility] ([id number]) [address] [address] [place] [address] Hematocrit (Bld) [Volume fraction] 40.1 % Normal 35-47 [facility] Comment on above: Performed By: #### C BCA, CMP, HA1C #### [facility] ([id number]) [address], [address] [place] [address] Hemoglobin (Bld) [Mass/Vol] 13.3 g/dL Normal 11.7-15.5 [facility] Comment on above: Performed By: #### C BCA, CMP, HA1C #### [facility] ([id number]) [address] [place] [address] Lymphocytes (Bld) [#/Vol] 1.3 10*3/uL Normal 1.0-3.5 [facility] Comment on above: Performed By: #### C BCA, CMP, HA1C #### [facility] ([id number]) [address] [address] [place] [address] Lymphocytes/100 WBC (Bld) 15.2 % Normal [facility] Comment on above: Performed By: #### C BCA, CMP, HA1C #### [facility] ([id number]) [address], [address] [place] [address] MCH (RBC) [Entitic mass] 32.0 pg Normal 27-34 [facility] Comment on above: Performed By: #### C CHRISTINA, CMP, HA1C #### [facility] ([id number]) [address] [place] [address] MCHC (RBC) [Mass/Vol] 33.1 g/dL Normal 32-36 [facility] Comment on above: Performed By: #### C CHRISTINA, CMP, HA1C #### [facility] ([id number]) [address] [place] [address] MCV (RBC) [Entitic vol] 97 fL Normal 80-100 [facility] Comment on above: Performed By: #### C CHRISTINA, CMP, HA1C #### [facility] ([id number]) [address] [place] [address] Monocytes (Bld) [#/Vol] 0.3 10*3/uL Normal 0-0.9 [facility] Comment on above: Performed By: #### C CHRISTINA, CMP, HA1C #### [facility] ([id number]) [address] [place] [address] Monocytes/100 WBC (Bld) 3.0 % Normal [facility] Comment on above: Performed By: #### C BCA, CMP, HA1C #### [facility] ([id number]) [address] [place] [address] Neutrophils/100 WBC (Bld) 81.5 % Normal [facility] Comment on above: Performed By: #### C CHRISTINA, CMP, HA1C #### [facility] ([id number]) [address], [address] [place] [address] Platelet mean volume (Bld) [Entitic vol] 8.7 fL Normal 7-12 [facility] Comment on above: Performed By: #### C BCA, CMP, HA1C #### [facility] ([id number]) [address] [place] [address] Platelets (Bld) [#/Vol] 219 10*3/uL Normal 150-450 [facility] Comment on above: Performed By: #### C BCA, CMP, HA1C #### [facility] ([id number]) [address] [place] [address] RBC COUNT 4.16 X10E12/L Normal 3.80-5.20 [facility] Comment on above: Performed By: #### C BCA, CMP, HA1C #### [facility] ([id number]) [address] [place] [address] WBC (Bld) [#/Vol] 8.5 10*3/uL Normal 4.0-11.0 [facility] Comment on above: Performed By: #### C BCA, CMP, HA1C #### [facility] ([id number]) [address] [place] [address] COMPREHENSIVE METABOLIC PANE Dorian 01-25-2024 Albumin [Mass/Vol] 4.2 g/dL Normal 3.2-5.3 [facility] Comment on above: Performed By: #### C BCA, CMP, HA1C #### [facility] ([id number]) [address] [place] [address] ALP [Catalytic activity/Vol] 60 U/L Normal 39-130 [facility] Comment on above: Performed By: #### C BCA, CMP, HA1C #### [facility] ([id number]) [address], [address] [place] [address] ALT [Catalytic activity/Vol] 24 U/L Normal 0-31 [facility] Comment on above: Performed By: #### C BCA, CMP, HA1C #### [facility] ([id number]) [address], [address] [place] [address] Anion gap [Moles/Vol] 10 mmol/L Normal 5-15 [facility] Comment on above: Performed By: #### C BCA, CMP, HA1C #### [facility] ([id number]) [address] [place] [address] AST [Catalytic activity/Vol] 20 U/L Normal 0-41 [facility] Comment on above: Performed By: #### C BCA, CMP, HA1C #### [facility] ([id number]) [address] [place] [address] Bilirubin [Mass/Vol] 0.4 mg/dL Normal 0.3-1.2 [facility] Comment on above: Performed By: #### C BCA, CMP, HA1C #### [facility] ([id number]) [address] [place] [address] Calcium [Mass/Vol] 9.3 mg/dL Normal 8.5-10.5 [facility] Comment on above: Performed By: #### C BCA, CMP, HA1C #### [facility] ([id number]) [address] [place] [address] Chloride [Moles/Vol] 101 mmol/L Normal 98-109 [facility] Comment on above: Performed By: #### C BCA, CMP, HA1C #### [facility] ([id number]) [address] [place] [address] CO2 [Moles/Vol] 24 mmol/L Normal 22-32 [facility] Comment on above: Performed By: #### C BCA, CMP, HA1C #### [facility] ([id number]) [address] [place] [address] Creatinine [Mass/Vol] 0.93 mg/dL Normal 0.40-1.00 [facility] Comment on above: Result Comment: METH OD TRACEABLE TO IDMS STANDARD Performed By: #### C BCA, CMP, HA1C #### [facility] ([id number]) [address] [place] [address] GFR/1.73 sq M.predicted among non-blacks MDRD (S/P/Bld) [Vol rate/Area] 67 mL/min/{1.73_m2} Normal >59 [facility] Comment on above: Result Comment: Reported eGFR is based on the CKD-EPI 2020 equation that does not use a race coefficient. Performed By: #### C BCA, CMP, HA1C #### [facility] ([id number]) [address] [place] [address] Glucose [Mass/Vol] 174 mg/dL High 65-99 [facility] Comment on above: Performed By: #### C BCA, CMP, HA1C #### [facility] ([id number]) [address] [place] [address] Potassium [Moles/Vol] 4.0 mmol/L Normal 3.5-5.0 [facility] Comment on above: Performed By: #### C BCA, CMP, HA1C #### [facility] ([id number]) [address] [address] [place] [address] Protein [Mass/Vol] 6.8 g/dL Normal 6.0-8.0 [facility] Comment on above: Performed By: #### C BCA, CMP, HA1C #### [facility] ([id number]) [address] [address] Sodium [Moles/Vol] 135 mmol/L Normal 134-146 [facility] Comment on above: Performed By: #### C BCA, CMP, HA1C #### [facility] ([id number]) [address] [address] [place] [address] Urea nitrogen [Mass/Vol] 29 mg/dL High 5-27 [facility] Comment on above: Performed By: #### C SINGH VASQUEZ, HA1C #### [facility] ([id number]) [address] [place] [address] Glucose Glucometer (BldC) [M ass/Vol]on 01-25-2024 Glucose [Mass/Vol] 199 mg/dL High 65-99 [facility] Glucose [Mass/Vol] 212 mg/dL High 65-99 [facility] Glucose [Mass/Vol] 237 mg/dL High 65-99 [facility] Glucose [Mass/Vol] 233 mg/dL High 65-99 [facility] HGB A1C (GLYCO-HGB)on 2023 Glucose [Mass/Vol] 126 mg/dL Normal [facility] Comment on above: Performed By: #### Hemant VASQUEZ CMP, HA1C #### [facility] ([id number]) [address] [place] [address] HbA1c (Bld) [Mass fraction] 6.0 % High 4.4-5.6 [facility] Comment on above: Result Comment: NOTE ADA Guidelines Result HgbA1c Normal : less than 5.7 % Prediabetes : 5.7 % to 6.4 % Diabetes : > 6.4 % Use with caution in patients with abnormal hemoglobin variants as the half-life of red blood cells and in vivo glycation rates are affected. Performed By: #### C CHRISTINA, SINGH, HA1C #### [facility] ([id number]) [address] [place] [address] CBC AND AUTO DIFFon 01-24-20 24 ABSOLUTE BASOPHIL 0.0 X10E9/L Normal 0.0-0.2 [facility] Comment on above: Performed By: #### Hemant VASQUEZ, CMP #### [facility] ([id number]) [address] [place] [address] ABSOLUTE NEUTROPHIL 5.7 X10E9/L Normal 1.5-6.6 [facility] Comment on above: Performed By: #### C BCA, CMP #### [facility] ([id number]) [address] [place] [address] Basophils/100 WBC (Bld) 0.2 % Normal [facility] Comment on above: Performed By: #### C CHRISTINA, CMP #### [facility] ([id number]) [address] [place] [address] Eosinophils (Bld) [#/Vol] 0.0 10*3/uL Normal 0.0-0.4 [facility] Comment on above: Performed By: #### C CHRISTINA, CMP #### [facility] ([id number]) [address] [place] [address] Eosinophils/100 WBC (Bld) 0.0 % Normal [facility] Comment on above: Performed By: #### C CHRISTINA, CMP #### [facility] ([id number]) [address] [place] [address] Erythrocyte distribution width (RBC) [Ratio] 12.9 % Normal 11.5-15.0 [facility] Comment on above: Performed By: #### C CHRISTINA, CMP #### [facility] ([id number]) [address] [place] [address] Hematocrit (Bld) [Volume fraction] 41.5 % Normal 35-47 [facility] Comment on above: Performed By: #### C BCA, CMP #### [facility] ([id number]) [address] [place] [address] Hemoglobin (Bld) [Mass/Vol] 14.1 g/dL Normal 11.7-15.5 [facility] Comment on above: Performed By: #### C BCA, CMP #### [facility] ([id number]) [address] [address] [place] [address] Lymphocytes (Bld) [#/Vol] 1.2 10*3/uL Normal 1.0-3.5 [facility] Comment on above: Performed By: #### C BCA, CMP #### [facility] ([id number]) [address] [place] [address] Lymphocytes/100 WBC (Bld) 16.8 % Normal [facility] Comment on above: Performed By: #### C BCA, CMP #### [facility] ([id number]) [address] [place] [address] MCH (RBC) [Entitic mass] 32.5 pg Normal 27-34 [facility] Comment on above: Performed By: #### C BCA, CMP #### [facility] ([id number]) [address] [place] [address] MCHC (RBC) [Mass/Vol] 33.9 g/dL Normal 32-36 [facility] Comment on above: Performed By: #### C BCA, CMP #### [facility] ([id number]) [address] [place] [address] MCV (RBC) [Entitic vol] 96 fL Normal 80-100 [facility] Comment on above: Performed By: #### C BCA, CMP #### [facility] ([id number]) [address] [place] [address] Monocytes (Bld) [#/Vol] 0.0 10*3/uL Normal 0-0.9 [facility] Comment on above: Performed By: #### C BCA, CMP #### [facility] ([id number]) [address] [place] [address] Monocytes/100 WBC (Bld) 0.7 % Normal [facility] Comment on above: Performed By: #### C BCA, CMP #### [facility] ([id number]) [address] [address] [place] [address] Neutrophils/100 WBC (Bld) 82.3 % Normal [facility] Comment on above: Performed By: #### C BCA, CMP #### [facility] ([id number]) [address] [address] [place] [address] Platelet mean volume (Bld) [Entitic vol] 8.5 fL Normal 7-12 [facility] Comment on above: Performed By: #### C CHRITSINA, CMP #### [facility] ([id number]) [address] [address] [place] [address] Platelets (Bld) [#/Vol] 219 10*3/uL Normal 150-450 [facility] Comment on above: Performed By: #### C BCA, CMP #### [facility] ([id number]) [address] [facility] [address] [place] [address] RBC COUNT 4.32 X10E12/L Normal 3.80-5.20 [facility] Comment on above: Performed By: #### C BCA, CMP #### [facility] ([id number]) [address] [address] [place] [address] WBC (Bld) [#/Vol] 6.9 10*3/uL Normal 4.0-11.0 [facility] Comment on above: Performed By: #### C BCA, CMP #### [facility] ([id number]) [address] [place] [address] COMPREHENSIVE METABOLIC PANE Dorian 01-24-2024 Albumin [Mass/Vol] 4.3 g/dL Normal 3.2-5.3 [facility] Comment on above: Performed By: #### C BCA, CMP #### [facility] ([id number]) [address] [place] [address] ALP [Catalytic activity/Vol] 69 U/L Normal 39-130 [facility] Comment on above: Performed By: #### C BCA, CMP #### [facility] ([id number]) [address] [place] [address] ALT [Catalytic activity/Vol] 30 U/L Normal 0-31 [facility] Comment on above: Performed By: #### C BCA, CMP #### [facility] ([id number]) [address] [place] [address] Anion gap [Moles/Vol] 12 mmol/L Normal 5-15 [facility] Comment on above: Performed By: #### C BCA, CMP #### [facility] ([id number]) [address] [place] [address] AST [Catalytic activity/Vol] 25 U/L Normal 0-41 [facility] Comment on above: Performed By: #### C BCA, CMP #### [facility] ([id number]) [address] [place] [address] Bilirubin [Mass/Vol] 0.5 mg/dL Normal 0.3-1.2 [facility] Comment on above: Performed By: #### C BCA, CMP #### [facility] ([id number]) [address] [place] [address] Calcium [Mass/Vol] 9.3 mg/dL Normal 8.5-10.5 [facility] Comment on above: Performed By: #### C BCA, CMP #### [facility] ([id number]) [address] [place] [address] Chloride [Moles/Vol] 102 mmol/L Normal 98-109 [facility] Comment on above: Performed By: #### C BCA, CMP #### [facility] ([id number]) [address] [place] [address] CO2 [Moles/Vol] 24 mmol/L Normal 22-32 [facility] Comment on above: Performed By: #### C BCA, CMP #### [facility] ([id number]) [address] [place] [address] Creatinine [Mass/Vol] 0.82 mg/dL Normal 0.40-1.00 [facility] Comment on above: Result Comment: METH OD TRACEABLE TO IDMS STANDARD Performed By: #### C BCA, CMP #### [facility] ([id number]) [address] [place] [address] GFR/1.73 sq M.predicted among non-blacks MDRD (S/P/Bld) [Vol rate/Area] 78 mL/min/{1.73_m2} Normal >59 [facility] Comment on above: Result Comment: Reported eGFR is based on the CKD-EPI 2020 equation that does not use a race coefficient. Performed By: #### C BCA, CMP #### [facility] ([id number]) [address] [place] [address] Glucose [Mass/Vol] 164 mg/dL High 65-99 [facility] Comment on above: Performed By: #### C BCA, CMP #### [facility] ([id number]) [address] [address] [place] [address] Potassium [Moles/Vol] 3.8 mmol/L Normal 3.5-5.0 [facility] Comment on above: Performed By: #### C BCA, CMP #### [facility] ([id number]) [address] [place] [address] Protein [Mass/Vol] 7.2 g/dL Normal 6.0-8.0 [facility] Comment on above: Performed By: #### C BCA, CMP #### [facility] ([id number]) [address] [place] [address] Sodium [Moles/Vol] 138 mmol/L Normal 134-146 [facility] Comment on above: Performed By: #### C BCA, CMP #### [facility] ([id number]) [address] [place] [address] Urea nitrogen [Mass/Vol] 19 mg/dL Normal 5-27 [facility] Comment on above: Performed By: #### C BCA, CMP #### [facility] ([id number]) [address] [place] [address] Glucose Glucometer (BldC) [M ass/Vol]on 01-24-2024 Glucose [Mass/Vol] 158 mg/dL High 65-99 [facility] Glucose [Mass/Vol] 132 mg/dL High 65-99 [facility] Glucose [Mass/Vol] 132 mg/dL High 65-99 [facility] MR LUMBAR SPINE WO CONTon MR LUMBAR SPINE WO CONT MR LUMBAR SPINE WO CONT History: Pain.Low back pain. Cauda equina symptoms. Weakness of right lower extremity MRI lumbar spine Technique: Multiplanar/multiseque nce images were obtained of the lumbar spine. No contrast was used. Findings: Position of the conus medullaris is within normal limits . Vertebral body heights and alignments are normal. The marrow signal is normal.No marrow infiltration to suspect occult fracture, infection or metastatic disease. No pedicle edema. Facet arthrosis is most prominent at L4 followed by L5 L1-2 disc space is normal L2-L3 disc space is desiccated. Anterior and posterior protrusions are appreciated. There is no concerning stenosis however L3-L4 disc space is desiccated. Posterior broad-based that disc protrusion is observed no concerning stenosis is appreciated at this time. Mild ligamentum flavum hypertrophy L4-L5 disc space is desiccated. Broad-based disc protrusion is appreciated. Facet arthrosis and ligament flavum hypertrophy is appreciated. No concerning stenosis at this time L5-S1 disc space is desiccated. Broad-based disc protrusion is appreciated this is more prominent to the right and does extend into the neural foraminal. As a result there is at least moderate in severity right foraminal stenosis. Please see sagittal image #4. Facet arthrosis is worse on the right than left and does contribute to the stenosis. The right L5 nerve root is affected No elevation of the PLL. Impression: * Acquired degenerative changes are appreciated. Right L5-S1 neural foraminal narrowing is appreciated from acquired degenerative disease disease as detailed above. Please correlate with the clinical picture.. Finalized by Valencia Ling MD on 01/24/2024 9:53 AM Normal [facility] CBC AND AUTO DIFFon 01-23-20 ABSOLUTE BASOPHIL 0.1 X10E9/L Normal 0.0-0.2 [facility] Comment on above: Performed By: #### Hemant VASQUEZ [facility], 1987-10 #### [facility] ([id number]) [address] [place] [address] ABSOLUTE NEUTROPHIL 5.2 X10E9/L Normal 1.5-6.[address] [facility] Comment on above: Performed By: #### Hemant VASQUEZ [facility], 1987-10 #### [facility] ([id number]) [address] [place] [address] Basophils/100 WBC (Bld) 1.0 % Normal [facility] Comment on above: Performed By: #### Hemant VASQUEZ [facility], 1987-10 #### [facility] ([id number]) [address] [place] [id number] Eosinophils (Bld) [#/Vol] 0.0 10*3/uL Normal 0.0-0.4 [facility] Comment on above: Performed By: #### Hemant VASQUEZ [facility], 1987-10 #### [facility] ([id number]) [address] [place] [id number] Eosinophils/100 WBC (Bld) 0.5 % Normal [facility] Comment on above: Performed By: #### Hemant VASQUEZ [facility], 1987-10 #### [facility] ([id number]) [address] [place] [address] [id number] Erythrocyte distribution width (RBC) [Ratio] 13.0 % Normal 11.5-15.0 [facility] Comment on above: Performed By: #### Hemant VASQUEZ [facility], 1987-10 #### [facility] ([id number]) [address] [place] [address] 06483 Hematocrit (Bld) [Volume fraction] 41.6 % Normal 35-47 [facility] Comment on above: Performed By: #### Hemant VASQUEZ [facility], 1987-10 #### [facility] ([id number]) [address] [place] [address] 28099 Hemoglobin (Bld) [Mass/Vol] 14.3 g/dL Normal 11.7-15.5 [facility] Comment on above: Performed By: #### Hemant VASQUEZ [facility], 1987-10 #### [facility] ([id number]) [address] [place] [address] 65610 Lymphocytes (Bld) [#/Vol] 1.6 10*3/uL Normal 1.0-3.5 [facility] Comment on above: Performed By: #### Hemant VASQUEZ [facility], 1987-10 #### [facility] ([id number]) [address] [place] [address] 88356 Lymphocytes/100 WBC (Bld) 22.7 % Normal [facility] Comment on above: Performed By: #### Hemant VASQUEZ [facility], 1987-10 #### [facility] ([id number]) [address] [place] [address] 35068 MCH (RBC) [Entitic mass] 32.1 pg Normal 27-34 [facility] Comment on above: Performed By: #### Hemant VASQUEZ [facility], 1987-10 #### [facility] ([id number]) [address] [place] [address] 94750 MCHC (RBC) [Mass/Vol] 34.4 g/dL Normal 32-36 [facility] Comment on above: Performed By: #### Hemant VASQUEZ [facility], 1987-10 #### [facility] ([id number]) [address] [place] [address] 04390 MCV (RBC) [Entitic vol] 93 fL Normal 80-100 [facility] Comment on above: Performed By: #### Hemant VASQUEZ [facility], 1987-10 #### [facility] ([id number]) [address] [place] [address] 93529 Monocytes (Bld) [#/Vol] 0.2 10*3/uL Normal 0-0.9 [facility] Comment on above: Performed By: #### Hemant VASQUEZ [facility], 1987-10 #### [facility] ([id number]) [address] [place] [address] 28504 Monocytes/100 WBC (Bld) 2.5 % Normal [facility] Comment on above: Performed By: #### Hemant VASQUEZ [facility], 1987-10 #### [facility] ([id number]) [address] [place] [address] 46043 Neutrophils/100 WBC (Bld) 73.3 % Normal [facility] Comment on above: Performed By: #### Hemant VASQUEZ [facility], 1987-10 #### [facility] ([id number]) [address] [place] [address] 85357 Platelet mean volume (Bld) [Entitic vol] 8.1 fL Normal 7-12 [facility] Comment on above: Performed By: #### Hemant VASQUEZ [facility], 1987-10 #### [facility] ([id number]) [address] [place] [address] 96991 Platelets (Bld) [#/Vol] 228 10*3/uL Normal 150-450 [facility] Comment on above: Performed By: #### Hemant VASQUEZ [facility], 1987-10 #### [facility] ([id number]) [address] [place] [address] 46628 RBC COUNT 4.47 X10E12/L Normal 3.80-5.20 [facility] Comment on above: Performed By: #### Hemant VASQUEZ C[facility], 1987-10 #### [facility] ([id number]) [address] [place] [address] 84741 WBC (Bld) [#/Vol] 7.1 10*3/uL Normal 4.0-11.0 [facility] Comment on above: Performed By: #### C CHRISTINA [facility], 1987-10 #### [facility] ([id number]) [address] [place] [address] 78702 COMPREHENSIVE METABOLIC PANE Dorian 01-23-2024 Albumin [Mass/Vol] 4.5 g/dL Normal 3.2-5.3 [facility] Comment on above: Performed By: #### Hemant VASQUEZ CMP, 1987-10 #### [facility] ([id number]) [address] [place] [address] 21837 ALP [Catalytic activity/Vol] 74 U/L Normal 39-130 [facility] Comment on above: Performed By: #### Hemant VASQUEZ [facility], 1987-10 #### [facility] ([id number]) [address] [place] [address] 59081 ALT [Catalytic activity/Vol] 42 U/L High 0-31 [facility] Comment on above: Performed By: #### Hemant VASQUEZ [facility], 1987-10 #### [facility] ([id number]) [address] [place] [address] 00412 Anion gap [Moles/Vol] 10 mmol/L Normal 5-15 [facility] Comment on above: Performed By: #### Hemant VASQUEZ CMP, 1987-10 #### [facility] ([id number]) [address] [place] [address] 12274 AST [Catalytic activity/Vol] 39 U/L Normal 0-41 [facility] Comment on above: Performed By: #### Hemant VASQUEZ CMP, 1987-10 #### [facility] ([id number]) [address] [place] [address] 01464 Bilirubin [Mass/Vol] 0.7 mg/dL Normal 0.3-1.2 [facility] Comment on above: Performed By: #### C CHRISTINA [facility], 1987-10 #### [facility] ([id number]) [address] [place] [address] 26629 Calcium [Mass/Vol] 9.1 mg/dL Normal 8.5-10.5 [facility] Comment on above: Performed By: #### C CHRISTINA [facility], 1987-10 #### [facility] ([id number]) [address] [place] [address] 56865 Chloride [Moles/Vol] 102 mmol/L Normal 98-109 [facility] Comment on above: Performed By: #### Hemant VASQUEZ [facility], 1987-10 #### [facility] ([id number]) [address] [place] [address] 30682 CO2 [Moles/Vol] 23 mmol/L Normal 22-32 [facility] Comment on above: Performed By: #### Hemant VASQUEZ [facility], 1987-10 #### [facility] ([id number]) [address] [place] [address] 85760 Creatinine [Mass/Vol] 0.84 mg/dL Normal 0.40-1.00 [facility] Comment on above: Result Comment: METH OD TRACEABLE TO IDMS STANDARD Performed By: #### C CHRISTINA [facility], 1987-10 #### [facility] ([id number]) [address] [place] [address] 76095 GFR/1.73 sq M.predicted among non-blacks MDRD (S/P/Bld) [Vol rate/Area] 76 mL/min/{1.73_m2} Normal >59 [facility] Comment on above: Result Comment: Reported eGFR is based on the CKD-EPI 2020 equation that does not use a race coefficient. Performed By: #### C CHRISTINA [facility], 1987-10 #### [facility] ([id number]) [address] [place] [address] 28186 Glucose [Mass/Vol] 118 mg/dL High 65-99 [facility] Comment on above: Performed By: #### C CHRISTINA [facility], 1987-10 #### [facility] ([id number]) [address] [place] [address] 56668 Potassium [Moles/Vol] 4.2 mmol/L Normal 3.5-5.0 [facility] Comment on above: Performed By: #### C CHRISTINA [facility], 1987-10 #### [facility] ([id number]) [address] [place] [address] 58206 Protein [Mass/Vol] 7.9 g/dL Normal 6.0-8.0 [facility] Comment on above: Performed By: #### Hemant VASQUEZ [facility], 1987-10 #### [facility] ([id number]) [address] [place] [address] 97024 Sodium [Moles/Vol] 135 mmol/L Normal 134-146 [facility] Comment on above: Performed By: #### Hemant VASQUEZ [facility], 1987-10 #### [facility] ([id number]) [address] [place] [address] 34772 Urea nitrogen [Mass/Vol] 15 mg/dL Normal 5-27 [facility] Comment on above: Performed By: #### Hemant VASQUEZ [facility], 1987-10 #### [facility] ([id number]) [address] [place] [address] 10942 CRP [Mass/Vol]on 01-23-2024 C REACTIVE PROTEIN 0.8 mg/dL High 0.000-0.744 [facility] Comment on above: Performed By: #### C CHRISTINA [facility], 1987-10 #### [facility] ([id number]) [address] [place] [address] LUMBAR SPINE WO CONTon CT LUMBAR SPINE WO CONT CT LUMBAR SPINE WO CONT CT LUMBAR SPINE WO CONT: 01/23/2024 3:50 PM Clinical: Back pain with right sciatica for 2 weeks. EXAM: CT LUMBAR SPINE Procedure: Axial sonographic sections obtained through lumbar spine. Automatic exposure control utilized. Sagittal and coronal reformatted images obtained. Findings: Lumbar vertebral body heights and alignment are normal. Mild multilevel degenerative disc and facet changes present. Visualized portions of sacrum and SI joints are unremarkable. No destructive bony changes. At L5-S1, there appears to be broad-based disc protrusion towards the right narrowing the right neural foramen. Note: CT is insensitive for evaluation of intracanalicular contents. Impression: * No acute fracture or malalignment. * L5-S1 suspect rightward disc bulge with right foraminal narrowing. * Consider MRI for better evaluation for patient's sciatica/radiculopathy . All CT scans at this facility use dose modulation, iterative reconstruction, and/or weight based dosing when appropriate to reduce radiation dose to as low as reasonably achievable. Finalized by Willis Pyle MD on 01/23/2024 4:17 PM Normal [facility] URN MACROSCOPIC NURon 2023 BILIRUBIN HUNTER Negative Normal NEG [facility] Comment on above: Performed By: #### N UM #### [facility] ([id number]) [address] [place] [address] 77378 BLOOD/HGB HUNTER Negative Normal NEG [facility] Comment on above: Performed By: #### N UM #### [facility] ([id number]) [address] [place] [address] 34010 GLUCOSE HUNTER Negative Normal NEG [facility] Comment on above: Performed By: #### N UM #### [facility] ([id number]) [address] [place] [address] 48203 KETONES HUNTER Negative Normal NEG [facility] Comment on above: Performed By: #### N UM #### [facility] ([id number]) [address] [place] [address] 83759 LEUKOCYTE ESTERASE HUNTER Trace Abnormal NEG [facility] Comment on above: Performed By: #### N UM #### [facility] ([id number]) [address] [place] [address] 08175 NITRITE HUNTER Negative Normal NEG [facility] Comment on above: Performed By: #### N UM #### [facility] ([id number]) [address] [place] [address] 42269 PH HUNTER 6.0 Normal 5.0-8.5 [facility] Comment on above: Performed By: #### N UM #### [facility] ([id number]) [address] [place] [address] 86008 PROTEIN HUNTER Negative Normal NEG [facility] Comment on above: Performed By: #### N UM #### [facility] ([id number]) [address] [place] [address] 03774 SPECIFIC GRAVITY HUNTER 1.010 Normal 1.003-1.035 [facility] Comment on above: Performed By: #### N UM #### [facility] ([id number]) [address] [place] [address] 93519 UROBILINOGEN HUNTER 0.2 eu/dL Normal <1.1 [facility] Comment on above: Performed By: #### N UM #### [facility] ([id number]) [address] [place] [address] 27841 MG MAMM SCREEN 3D HOMER CADon 05-02-2022 MG MAMM SCREEN 3D HOMER CAD Patient: ANGELINA CARRASCO Exam Date: 05/02/2022 : 1955 Gender:F Ordering : DR LETICIA ROBERTS . Admission #: [id number] Family : Order #: [id number] CLICK HERE TO VIEW EXAM RADIOLOGY REPORT PROCEDURE: MAMMOGRAM SCREENING 3D BILATERAL CAD COMPARISON: MG MAMM SCREEN HOMER W CAD, 02/09/2020. MG MAMM SCREEN 3D HOMER CAD, 04/21/2021. INDICATIONS: Screening mammography Calculator Name NCI Breast Cancer Risk Assessment Tool 5 Year Breast Cancer Risk 1.60% Lifetime Breast Cancer Risk 5.90% Personal Breast Cancer No Personal Ovarian Cancer No Treatments None Family Cancers Mother with leukemia cancer at age 74. LOCATION: [facility] BREAST COMPOSITION: Scattered areas fibroglandular density. FINDINGS: DIAGNOSTIC CATEGORY 1--NEGATIVE. NO CHANGE FROM COMPARISON ASSESSMENT. Scattered benign-appearing calcifications are present. Scattered benign-appearing lymph nodes are present. RIGHT BREAST: No significant suspicious finding. LEFT BREAST: No significant suspicious finding. RECOMMENDATIONS: ROUTINE MAMMOGRAM AND CLINICAL EVALUATION IN 12 MONTHS. PLEASE NOTE: A NORMAL MAMMOGRAM DOES NOT EXCLUDE THE POSSIBILITY OF BREAST CANCER. A CLINICALLY SUSPICIOUS PALPABLE LUMP SHOULD BE BIOPSIED. Dictated by: Noe Reynolds MD on 05/03/2022 at 07:18 Approved by: Noe Reynolds MD on 05/03/2022 at 07:19 Normal [facility] Encounters Encounter Date Encounter Type Care Provider Facility Start: 06-11-2024 ambulatory Fercho Louis PA-C Facility:[facility] Start: 05-28-2024 ambulatory Lynn langford APRN-SPECIAL EFFECTS SPECIALIST Facility:[facility] Start: 05-27-2024 End: 05-27-2024 ambulatory Lynn Mckoy APRN-SPECIAL EFFECTS SPECIALIST Facility:[facility] Start: 05-14-2024 End: 05-14-2024 ambulatory Fercho Louis PA-C Facility:[facility] Start: 05-12-2024 End: 05-12-2024 ambulatory ARMIN Amanda GALLAGHER [facility] Start: 04-29-2024 End: 04-29-2024 ambulatory Lynn Mckoy APRN-SPECIAL EFFECTS SPECIALIST Facility:[facility] Start: 04-16-2024 End: 04-16-2024 ambulatory Fercho Rajput MD Facility:[facility] Start: 04-01-2024 End: 04-01-2024 ambulatory Lynn Mckoy APRN-SPECIAL EFFECTS SPECIALIST Facility:[facility] Start: 03-05-2024 End: 03-05-2024 ambulatory Fercho Rajput MD Facility:[facility] Start: 02-20-2024 End: 02-20-2024 ambulatory Fercho Rajput MD Facility:[facility] Start: 02-14-2024 End: 02-14-2024 ambulatory Fercho Rajput MD Facility:[facility] Start: 01-30-2024 End: 01-30-2024 ambulatory NILSA VANN [facility] Start: 01-29-2024 Evaluation and management of inpatient LIANNEBRIGIDO Jodee HUANG [facility] Start: 01-24-2024 End: 01-24-2024 ambulatory SALONI Cooper [facility] Start: 01-24-2024 End: 01-29-2024 ambulatory ALIZE TUCKER [facility] Start: 01-23-2024 End: 01-29-2024 Evaluation and management of inpatient NO PCP NO PCP [facility] Start: 01-23-2024 End: 01-24-2024 Emergency department patient visit SALONI Cooper [facility] Start: 01-23-2024 End: 01-23-2024 Emergency department patient visit SALONI Cooper [facility] Start: 05-02-2022 End: 05-03-[address] LETICIA ROBERTS Facility:[facility] Payers Date Payer Category Payer Medicare 2021 Unknown 1958 Medicare [id number] 1958 Unknown [id number] 1955 Unknown [id number] 2.16.84 0.1.700351.3.579.2.593 1955 Unknown [id number] 2.16.8 40.1.356840.3.579.2.1286 1955 Unknown [id number] 2.16.8 40.1.762664.3.579.2.1286 1955 Unknown [id number] 2.16.8 40.1.422563.3.579.2.1286 1955 Unknown [id number] 2.16.8 40.1.869319.3.579.2.1286 1955 Unknown [id number] 2.16.8 40.1.309782.3.579.2.1286 1955 Unknown [id number] 2.16.8 40.1.749317.3.579.2.1286 1955 Unknown [id number] 2.16.8 40.1.819545.3.579.2.128 1955 Unknown [id number] 2.16.8 40.1.233346.3.579.2.1286 1955 Unknown [id number] 2.16. 840.1.564409.3.579.2.196 1955 Unknown [id number] 2.16. 840.1.823910.3.579.2.196 1955 Unknown [id number] 2.16. 840.1.736122.3.579.2. 1955 Unknown [id number] 2.16. 840.1.128666.3.579.2. 1955 Unknown [id number] 2.16. 840.1.312091.3.579.2.196 1955 Unknown [id number] 2.16. 840.1.006139.3.579.2.196 1955 Unknown [id number] 2.16. 840.1.624835.3.579.2.196 1955 Unknown [id number] 2.16. 840.1.574162.3.579.2. 1955 Unknown [id number] 2.16. 840.1.179816.3.579.2.196 1955 Unknown [id number] 2.16. 840.1.819738.3.579.2. 1955 Unknown [id number] 2.16. 840.1.938835.3.579.2. Clinical Note 05-14-2024 Note Date & Type Note Facility 05-14-2024 Note PROCEDURE: Bilateral L4-5, L5-S1 dorsal medial branch blocks under 6 seconds fluoroscopic guidance. PREOPERATIVE AND POSTOPERATIVE DIAGNOSIS: Pain due to lumbosacral spondylosis without myelopathy. Physician: Fercho Rajput M.D. COMPLICATIONS: None. EBL: None IMPLANTS: None. ASSISTANTS: None. SAMPLES TAKEN: None ANTIBIOTICS: None SOLUTION USED: Marcaine 0.50% total of 4 mLs, 40mg Kenalog ANESTHESIA: Local. Indications: Debilitating mechanical spinal failing physical medical measures over a six-week period within the last 3 months. For symptomatology that does re-create with spinal loading without neural compression, candidacy is established for diagnostic joint nerve blockade to establish causality and determine the usefulness of rhizotomy therapy. DESCRIPTION OF PROCEDURE: The patient was placed in prone position. The skin overlying the indicated area was prepped with alcohol and draped. We employed fluoroscopic guidance and visualized the patient's spine in a posterior-anterior projection. We then employed a spinal needle which was inserted percutaneously. We then confirmed with multi-angled projections and identification of the bilateral L4-5, L5-S1 DMR where we injected 1 mL of solution was injected and needle was withdrawn. The patient was turned back onto the gurney and taken to recovery in stable condition and allowed to recover from the procedure, then discharged per criteria.. This document serves as a record of the services and decisions personally performed and made by the attending provider. It was created on his/her behalf by a trained medical laboratory technical officer. The creation of this document is based on the provider?s statements to the medical laboratory technical officer. Electronically signed by Fercho Rajput MD 05/14/24 12:59 EST Electronically signed by Becky Beasley 05/14/2024 12:54 EST [facility] History and physical note 05-14-2024 Note Date & Type Note Facility 05-14-2024 Note History of Present I llness CHIEF COMPLAINT: Low Back pain HISTORY OF PRESENT ILLNESS: Debilitating spinal pain which worsens with facet loading maneuvers. The patient's axial symptoms, without evidence of nerve compression, have failed physical and medical measures. PHYSICAL EXAM: HEENT: Normocephalic, atraumatic. RESPIRATIONS: Unlabored, clear. CARDIOVASCULAR: Regular rate, rhythm. ABDOMEN: Soft nontender MUSCULOSKELETAL: Pain that does re-create with lumbar loading. REVIEW OF SYSTEMS: Brief review of systems was conducted. Complaints are noncontributory for cauda equina or myelopathic complaints, fever chills or sweats or unintended weight loss or gain. ASSESSMENT: Lumbosacral spondylosis without myelopathy. PLAN: The patient meets criteria for a second concordant diagnostic lumbar facet joint nerve blockade for symptoms that did reveal an 80% reduction in symptoms after initial diagnostic procedure, that do worsen with loading without neural compression to establish cause and candidacy for rhizotomy therapy. Benefits risks and alternatives have been discussed, we agree to proceed. Physical Exam Vitals & Measurements HR: 78 (Peripheral) RR: 16 BP: 107/72 SpO2: 96% HT: 167 cm WT: 90.5 kg Additional Vitals No qualifying data available. This document serves as a record of the services and decisions personally performed and made by the attending provider. It was created on his/her behalf by a trained medical laboratory technical officer. The creation of this document is based on the provider?s statements to the medical laboratory technical officer. Problem List/Past Medical History Ongoing Cervical neuritis Cervical spinal stenosis Cervical spondylosis Cervicalgia Headaches Hearing loss Hypertension Lumbar degenerative disc disease Lumbar neuritis Lumbosacral spondylosis Neck pain Historical No qualifying data Procedure/Surgical History c section x2 hysterectomy (1999) Cervical/Thoracic Transforaminal Epidural Steroid Injection (Left) (05/10/2017) Cervical/Thoracic Transforaminal Epidural Steroid Injection (Left) (06/21/2017) Cervical/Thoracic Dorsal Medial Branch Block (Bilateral) (08/02/2017) Cervical/Thoracic Dorsal Medial Branch Block (Bilateral) (08/21/2017) Cervical Radiofrequency Ablation (Left) (09/13/2017) Cervical Radiofrequency Ablation (Right) (10/18/2017) Cervical/Thoracic Dorsal Medial Branch Block (Bilateral) (05/12/2021) Cervical/Thoracic Dorsal Medial Branch Block (Bilateral) (06/01/2021) Cervical Radiofrequency Ablation (Bilateral) (07/08/2021) Lumbar/Sacral Transforaminal Epidural Steroid Injection (Right) (02/20/2024) Sciatic Nerve Block (Right) (03/05/2024) Lumbar/Sacral Dorsal Medial Branch Block (Bilateral) (04/16/2024) Medications Inpatient No active inpatient medications Home atorvastatin 10 mg oral tablet, 10 mg= 1 tabs, Oral, Daily gabapentin 400 mg oral capsule, 400 mg= 1 caps, Oral, QID Handicap Placard, See Instructions Handicap Placard, See Instructions hydrOXYzine hydrochloride 25 mg oral tablet, 25 mg= 1 tabs, Oral, QID, prn sleep Lexapro 10 mg oral tablet, 10 mg= 1 tabs, Oral, Daily losartan-hydrochlorothiazide 50mg-12.5mg oral tablet, 1 tabs, Oral, Daily, Not taking methocarbamol 500 mg oral tablet, 500 mg= 1 tabs, Oral, QID traZODone 50 mg oral tablet, 50 mg= 1 tabs, Oral, HS (at bedtime) Tylenol, 1000 mg, Oral, QID, PRN valACYclovir 500 mg oral tablet, Oral Allergies penicillins (rash) Social History Alcohol Current, 1-2 times per year Substance Abuse Denies All Tobacco Never smoker Lab Results Microbiology - Current Encounter No qualifying data available. Electronically signed by Fercho Rajput MD 05/14/24 13:00 EST Electronically signed by Becky Beasley 05/14/2024 12:21 EST [facility] Clinical Note 04-16-2024 Note Date & Type Note Facility 04-16-2024 Note PROCEDURE: Bilateral L4-5, L5-S1 dorsal medial branch blocks under 6 seconds fluoroscopic guidance. PREOPERATIVE AND POSTOPERATIVE DIAGNOSIS: Pain due to lumbosacral spondylosis without myelopathy. Physician: Fercho Rajput M.D. COMPLICATIONS: None. EBL: None IMPLANTS: None. ASSISTANTS: None. SAMPLES TAKEN: None ANTIBIOTICS: None SOLUTION USED: Marcaine 0.50% total of 4 mLs, 40mg Kenalog ANESTHESIA: Local. Indications: Debilitating mechanical spinal failing physical medical measures over a six-week period within the last 3 months. For symptomatology that does re-create with spinal loading without neural compression, candidacy is established for diagnostic joint nerve blockade to establish causality and determine the usefulness of rhizotomy therapy. DESCRIPTION OF PROCEDURE: The patient was placed in prone position. The skin overlying the indicated area was prepped with alcohol and draped. We employed fluoroscopic guidance and visualized the patient's spine in a posterior-anterior projection. We then employed a spinal needle which was inserted percutaneously. We then confirmed with multi-angled projections and identification of the bilateral L4-5, L5-S1 DMR where we injected 1 mL of solution was injected and needle was withdrawn. The patient was turned back onto the gurney and taken to recovery in stable condition and allowed to recover from the procedure, then discharged per criteria.. This document serves as a record of the services and decisions personally performed and made by the attending provider. It was created on his/her behalf by a trained medical laboratory technical officer. The creation of this document is based on the provider?s statements to the medical laboratory technical officer. Electronically signed by Fercho Rajput MD 04/16/24 10:07 EDT Electronically signed by Becky Beasley 04/16/2024 10:02 EDT [facility] History and physical note 04-16-2024 Note Date & Type Note Facility 04-16-2024 Note History of Present I llness CHIEF COMPLAINT: Low back pain. HISTORY OF PRESENT ILLNESS: Debilitating spinal pain which worsens with lumbar facet loading maneuvers. The patient's axial symptoms, without evidence of nerve compression, have failed physical and medical measures. PHYSICAL EXAM: HEENT: Normocephalic, atraumatic. RESPIRATIONS: Unlabored, clear. CARDIOVASCULAR: Regular rate, rhythm. ABDOMEN: Soft nontender MUSCULOSKELETAL: Pain that does re-create with lumbar loading. REVIEW OF SYSTEMS: Brief review of systems was conducted. Complaints are noncontributory for cauda equina or myelopathic complaints, fever chills or sweats or unintended weight loss or gain. ASSESSMENT: Lumbosacral spondylosis, lumbar spondylosis. PLAN: The patient meets criteria for diagnostic lumbar facet joint nerve blockade for symptoms that do worsen with loading without neural compression to establish cause and candidacy for rhizotomy therapy. Benefits risks and alternatives have been discussed, we agree to proceed. Physical Exam Vitals & Measurements HR: 73 (Peripheral) RR: 16 BP: 143/85 SpO2: 96% HT: 167 cm WT: 84 kg Additional Vitals No qualifying data available. This document serves as a record of the services and decisions personally performed and made by the attending provider. It was created on his/her behalf by a trained medical laboratory technical officer. The creation of this document is based on the provider?s statements to the medical laboratory technical officer. Problem List/Past Medical History Ongoing Cervical neuritis Cervical spinal stenosis Cervical spondylosis Cervicalgia Headaches Hearing loss Hypertension Lumbar degenerative disc disease Lumbar neuritis Lumbosacral spondylosis Neck pain Historical No qualifying data Procedure/Surgical History c section x2 hysterectomy (1999) Cervical/Thoracic Transforaminal Epidural Steroid Injection (Left) (05/10/2017) Cervical/Thoracic Transforaminal Epidural Steroid Injection (Left) (06/21/2017) Cervical/Thoracic Dorsal Medial Branch Block (Bilateral) (08/02/2017) Cervical/Thoracic Dorsal Medial Branch Block (Bilateral) (08/21/2017) Cervical Radiofrequency Ablation (Left) (09/13/2017) Cervical Radiofrequency Ablation (Right) (10/18/2017) Cervical/Thoracic Dorsal Medial Branch Block (Bilateral) (05/12/2021) Cervical/Thoracic Dorsal Medial Branch Block (Bilateral) (06/01/2021) Cervical Radiofrequency Ablation (Bilateral) (07/08/2021) Lumbar/Sacral Transforaminal Epidural Steroid Injection (Right) (02/20/2024) Sciatic Nerve Block (Right) (03/05/2024) Medications Inpatient No active inpatient medications Home atorvastatin 10 mg oral tablet, 10 mg= 1 tabs, Oral, Daily Bactrim DS 800 mg-160 mg oral tablet, 1 tabs, Oral, BID doxycycline hyclate 100 mg oral capsule, 100 mg= 1 caps, Oral, BID gabapentin 400 mg oral capsule, 400 mg= 1 caps, Oral, QID Handicap Placard, See Instructions Handicap Placard, See Instructions hydrOXYzine hydrochloride 25 mg oral tablet, 25 mg= 1 tabs, Oral, QID, prn sleep Hyzaar 50 mg-12.5 mg oral tablet, 1 tabs, Oral, Daily Lexapro 10 mg oral tablet, 10 mg= 1 tabs, Oral, Daily lidocaine 5% topical film, 1 patches, Topical, Daily, remove patches after 12 hours losartan-hydrochlorothiazide 50mg-12.5mg oral tablet, 1 tabs, Oral, Daily, Not taking Lovenox 40 mg/0.4 mL injectable solution, 40 mg= 0.4 mL, Subcutaneous, Daily, Not taking melatonin 3 mg oral tablet, 6 mg= 2 tabs, Oral, HS (at bedtime), PRN methocarbamol 500 mg oral tablet, 500 mg= 1 tabs, Oral, QID naproxen 500 mg oral tablet, 500 mg= 1 tabs, Oral, BID, PRN, Not taking omeprazole, Oral, Daily, Not taking oxyCODONE 5 mg oral capsule, Oral, TID, PRN polyethylene glycol 3350 oral powder for reconstitution, 17 g, Oral, Daily Senokot, 8.6 mg, Oral, HS (at bedtime) tiZANidine 4 mg oral tablet, 4 mg= 1 tabs, Oral, HS (at bedtime), Not taking traZODone 50 mg oral tablet, 50 mg= 1 tabs, Oral, HS (at bedtime) Tylenol, 1000 mg, Oral, QID, PRN valACYclovir 500 mg oral tablet, Oral, Daily, Not taking zonisamide 50 mg oral capsule, 50 mg= 1 caps, Oral, BID, Not taking Allergies penicillins (rash) Social History Alcohol Current, 1-2 times per year Substance Abuse Denies All Tobacco Never (less than 100 in lifetime) Use:. Lab Results Microbiology - Current Encounter No qualifying data available. Electronically signed by Fercho Rajput MD 04/16/24 09:49 EDT Electronically signed by Becky Beasley 04/16/2024 09:47 EDT [facility] Clinical Note 03-05-2024 Note Date & Type Note Facility 03-05-2024 Note PROCEDURE: Right sci atic nerve injection under 6 seconds fluoroscopic guidance. Physician: Fercho Rajput M.D. PREOPERATIVE AND POSTOPERATIVE DIAGNOSIS: Pain secondary to right sciatica. SOLUTION USED: 4 mls 0.25% Marcaine, 40 mg Kenalog. ANESTHESIA: Local. COMPLICATIONS: None. EBL: None IMPLANTS: None. ASSISTANTS: None. SAMPLES TAKEN: None ANTIBIOTICS: None IV FLUIDS: Per OR record. PROCEDURE DESCRIPTION: After the patient was seen and examined in the preoperative holding area, he was brought to the medical procedure unit, placed in the prone position where time-out was complete, verifying correct patient, procedure, site positioning, implant and special equipment. The area overlying the femoral neck was prepped and draped. Standard ASA monitors were applied. Anesthetic was achieved. Through a raised skin wheal with local anesthetic, a 22 gauge, 6-inch Stimuplex needle was advanced toward the inferior aspect of the right femoral neck, emitting 2 milliamperes of current until plantar flexion was achieved in the ipsilateral foot under direct fluoroscopic visualization. At this point, Omnipaque contrast dye was injected and showed adequate spread. There was no evidence of vascular or neural uptake. The above-mentioned injectate was placed in three 1 mL aliquots, preceded by negative aspiration without sequela. The needle was removed, the insertion site was covered. The patient was taken to the postprocedure recovery area where he was monitored for an appropriate length of time before being found suitable for discharge in the company of a responsible adult. This document serves as a record of the services and decisions personally performed and made by the attending provider. It was created on his/her behalf by a trained medical laboratory technical officer. The creation of this document is based on the provider?s statements to the medical laboratory technical officer. Electronically signed by Fercho Rajput MD 03/05/24 13:08 EDT Electronically signed by Becky Beasley Bryan 03/05/2024 12:20 EDT [facility] History and physical note 03-05-2024 Note Date & Type Note Facility 03-05-2024 Note History of Present I llness CHIEF COMPLAINT: Lumbosacral pain HISTORY OF PRESENT ILLNESS: Debilitating spinal pain which worsens sciatic Tinel's. PHYSICAL EXAM: HEENT: Normocephalic, atraumatic. RESPIRATIONS: Unlabored, clear. CARDIOVASCULAR: Regular rate, rhythm. ABDOMEN: Soft nontender MUSCULOSKELETAL: Pain that does re-create with Juan Carlos's maneuver. REVIEW OF SYSTEMS: Brief review of systems was conducted. Complaints are noncontributory for cauda equina or myelopathic complaints, fever chills or sweats or unintended weight loss or gain. ASSESSMENT: Right Sciatica PLAN: Debilitating right leg pain that does provocation with sciatic Tinel's. For symptomatology which is failed conservative measures impairing function indicative of sciatica, candidacy is established for an analgesic intervention. Physical Exam Vitals & Measurements HR: 71 (Peripheral) RR: 16 BP: 172/86 SpO2: 96% HT: 167 cm WT: 87 kg Additional Vitals No qualifying data available. This document serves as a record of the services and decisions personally performed and made by the attending provider. It was created on his/her behalf by a trained medical laboratory technical officer. The creation of this document is based on the provider?s statements to the medical laboratory technical officer. Problem List/Past Medical History Ongoing Cervical neuritis Cervical spinal stenosis Cervical spondylosis Headaches Hearing loss Hypertension Lumbar degenerative disc disease Lumbar neuritis Neck pain Historical No qualifying data Procedure/Surgical History c section x2 hysterectomy (1999) Cervical/Thoracic Transforaminal Epidural Steroid Injection (Left) (05/10/2017) Cervical/Thoracic Transforaminal Epidural Steroid Injection (Left) (06/21/2017) Cervical/Thoracic Dorsal Medial Branch Block (Bilateral) (08/02/2017) Cervical/Thoracic Dorsal Medial Branch Block (Bilateral) (08/21/2017) Cervical Radiofrequency Ablation (Left) (09/13/2017) Cervical Radiofrequency Ablation (Right) (10/18/2017) Cervical/Thoracic Dorsal Medial Branch Block (Bilateral) (05/12/2021) Cervical/Thoracic Dorsal Medial Branch Block (Bilateral) (06/01/2021) Cervical Radiofrequency Ablation (Bilateral) (07/08/2021) Lumbar/Sacral Transforaminal Epidural Steroid Injection (Right) (02/20/2024) Medications Inpatient No active inpatient medications Home atorvastatin 10 mg oral tablet, 10 mg= 1 tabs, Oral, Daily Bactrim DS 800 mg-160 mg oral tablet, 1 tabs, Oral, BID doxycycline hyclate 100 mg oral capsule, 100 mg= 1 caps, Oral, BID gabapentin 400 mg oral capsule, 400 mg= 1 caps, Oral, QID hydrOXYzine hydrochloride 25 mg oral tablet, 25 mg= 1 tabs, Oral, QID, prn sleep Hyzaar 50 mg-12.5 mg oral tablet, 1 tabs, Oral, Daily Lexapro 10 mg oral tablet, 10 mg= 1 tabs, Oral, Daily lidocaine 5% topical film, 1 patches, Topical, Daily, remove patches after 12 hours losartan-hydrochlorothiazide 50mg-12.5mg oral tablet, 1 tabs, Oral, Daily, Not taking Lovenox 40 mg/0.4 mL injectable solution, 40 mg= 0.4 mL, Subcutaneous, Daily melatonin 3 mg oral tablet, 6 mg= 2 tabs, Oral, HS (at bedtime), PRN methocarbamol 500 mg oral tablet, 500 mg= 1 tabs, Oral, QID naproxen 500 mg oral tablet, 500 mg= 1 tabs, Oral, BID, PRN, Not taking omeprazole, Oral, Daily, Not taking oxyCODONE 5 mg oral capsule, Oral, TID, PRN polyethylene glycol 3350 oral powder for reconstitution, 17 g, Oral, Daily Senokot, 8.6 mg, Oral, HS (at bedtime) tiZANidine 4 mg oral tablet, 4 mg= 1 tabs, Oral, HS (at bedtime), Not taking traZODone 50 mg oral tablet, 50 mg= 1 tabs, Oral, HS (at bedtime) Tylenol, 1000 mg, Oral, QID, PRN valACYclovir 500 mg oral tablet, Oral, Daily, Not taking zonisamide 50 mg oral capsule, 50 mg= 1 caps, Oral, BID, Not taking Allergies penicillins (rash) Social History Alcohol Current, 1-2 times per year Substance Abuse Denies All Tobacco Never (less than 100 in lifetime) Use:. Lab Results Microbiology - Current Encounter No qualifying data available. Electronically signed by Fercho Rajput MD 03/05/24 12:07 EDT Electronically signed by Becky Beasley 03/05/2024 12:04 EDT [facility] Clinical Note 02-20-2024 Note Date & Type Note Facility 02-20-2024 Note PROCEDURE: Right L5, S1 transforaminal epidural steroid injection under 6 seconds fluoroscopic guidance. Physician: Fercho Rajput M.D. PRE- AND POSTOPERATIVE DIAGNOSES: Pain secondary to lumbar spinal stenosis with neurogenic claudication. SOLUTION USED: 80 mg Kenalog, 100mcg Clonidine, 1 mL 2% preservative free lidocaine, 1 mL 0.9% normal saline, 1 mL 0.25% preservative free Marcaine. COMPLICATIONS: None. EBL: None IMPLANTS: None. ASSISTANTS: None. SAMPLES TAKEN: None ANTIBIOTICS: None. ANESTHESIA: Local. IV FLUIDS: Per sedation record. PROCEDURE DESCRIPTION: After informed consent was obtained, the patient was brought to the operating room and was placed in the prone position. Standard monitoring was applied. The skin overlying the area was prepped and draped in standard sterile fashion. A 25-gauge spinal needle was inserted through the skin and directed toward the right L5, S1 neural foramen under fluoroscopic guidance. Radiopaque contrast dye 0.3 mL was injected and appropriate epidural distribution was established without intravascular or intrathecal spread. Subsequently, 1 mL of the corticosteroid and local anesthetic solution was injected. The needle was removed. The patient was then turned supine onto the gurney and transferred to the recovery area in stable condition, to be discharged home after meeting criteria and follow up as per treatment plan. This document serves as a record of the services and decisions personally performed and made by the attending provider. It was created on his/her behalf by a trained medical laboratory technical officer. The creation of this document is based on the provider?s statements to the medical laboratory technical officer. Electronically signed by Fercho Rajput MD 02/20/24 16:03 EDT Electronically signed by Mary Carter 02/20/2024 15:56 EDT [facility] History and physical note 02-20-2024 Note Date & Type Note Facility 02-20-2024 Note History of Present I llness CHIEF COMPLAINT: Back pain HISTORY OF PRESENT ILLNESS: Debilitating spinal pain which worsens with nerve root tensioning failing conservative measures markedly impairing function indicating the appropriateness for transforaminal epidural steroid blockade. PHYSICAL EXAM: HEENT: Normocephalic, atraumatic. RESPIRATIONS: Unlabored, clear. CARDIOVASCULAR: Regular rate, rhythm. ABDOMEN: Soft nontender MUSCULOSKELETAL: Pain that does re-create nerve root tensioning. REVIEW OF SYSTEMS: Brief review of systems was conducted. Complaints are noncontributory for cauda equina or myelopathic complaints, fever chills or sweats or unintended weight loss or gain. ASSESSMENT: Lumbar spinal stenosis with neurogenic claudication. PLAN: Neurogenic discomfort secondary to disc and spondylitic reactivity precipitating neural foraminal narrowing and lateral recess stenosis. For complaints that have failed conservative measures, candidacy has been established for epidural steroid blockade transforaminal approach for diagnostic and potential therapeutic benefit. Risks benefits alternatives have been discussed, we agree to proceed. Physical Exam Vitals & Measurements HR: 70 (Peripheral) RR: 16 BP: 123/71 SpO2: 92% HT: 167 cm WT: 84 kg Additional Vitals No qualifying data available. This document serves as a record of the services and decisions personally performed and made by the attending provider. It was created on his/her behalf by a trained medical laboratory technical officer. The creation of this document is based on the provider?s statements to the medical laboratory technical officer. Problem List/Past Medical History Ongoing Cervical neuritis Cervical spinal stenosis Cervical spondylosis Headaches Hearing loss Hypertension Lumbar degenerative disc disease Lumbar neuritis Neck pain Historical No qualifying data Procedure/Surgical History c section x2 hysterectomy (1999) Cervical/Thoracic Transforaminal Epidural Steroid Injection (Left) (05/10/2017) Cervical/Thoracic Transforaminal Epidural Steroid Injection (Left) (06/21/2017) Cervical/Thoracic Dorsal Medial Branch Block (Bilateral) (08/02/2017) Cervical/Thoracic Dorsal Medial Branch Block (Bilateral) (08/21/2017) Cervical Radiofrequency Ablation (Left) (09/13/2017) Cervical Radiofrequency Ablation (Right) (10/18/2017) Cervical/Thoracic Dorsal Medial Branch Block (Bilateral) (05/12/2021) Cervical/Thoracic Dorsal Medial Branch Block (Bilateral) (06/01/2021) Cervical Radiofrequency Ablation (Bilateral) (07/08/2021) Medications Inpatient No active inpatient medications Home atorvastatin 10 mg oral tablet, 10 mg= 1 tabs, Oral, Daily Bactrim DS 800 mg-160 mg oral tablet, 1 tabs, Oral, BID doxycycline hyclate 100 mg oral capsule, 100 mg= 1 caps, Oral, BID gabapentin 400 mg oral capsule, 400 mg= 1 caps, Oral, QID hydrOXYzine hydrochloride 25 mg oral tablet, 25 mg= 1 tabs, Oral, QID, prn sleep Hyzaar 50 mg-12.5 mg oral tablet, 1 tabs, Oral, Daily Lexapro 10 mg oral tablet, 10 mg= 1 tabs, Oral, Daily lidocaine 5% topical film, 1 patches, Topical, Daily, remove patches after 12 hours losartan-hydrochlorothiazide 50mg-12.5mg oral tablet, 1 tabs, Oral, Daily, Not taking Lovenox 40 mg/0.4 mL injectable solution, 40 mg= 0.4 mL, Subcutaneous, Daily melatonin 3 mg oral tablet, 6 mg= 2 tabs, Oral, HS (at bedtime), PRN methocarbamol 500 mg oral tablet, 500 mg= 1 tabs, Oral, QID naproxen 500 mg oral tablet, 500 mg= 1 tabs, Oral, BID, PRN, Not taking omeprazole, Oral, Daily, Not taking oxyCODONE 5 mg oral capsule, Oral, TID, PRN polyethylene glycol 3350 oral powder for reconstitution, 17 g, Oral, Daily Senokot, 8.6 mg, Oral, HS (at bedtime) tiZANidine 4 mg oral tablet, 4 mg= 1 tabs, Oral, HS (at bedtime), Not taking traZODone 50 mg oral tablet, 50 mg= 1 tabs, Oral, HS (at bedtime) Tylenol, 1000 mg, Oral, QID, PRN valACYclovir 500 mg oral tablet, Oral, Daily, Not taking zonisamide 50 mg oral capsule, 50 mg= 1 caps, Oral, BID, Not taking Allergies penicillins (rash) Social History Alcohol Current, 1-2 times per year Substance Abuse Denies All Tobacco Never (less than 100 in lifetime) Use:. Lab Results Microbiology - Current Encounter No qualifying data available. Electronically signed by Fercho Rajput MD 02/20/24 15:18 EDT Electronically signed by Mary Carter 02/20/2024 15:06 EDT [facility] Clinical Note 02-14-2024 Note Date & Type Note Facility 02-14-2024 Note This is a Telehealth Appointment *This visit was conducted via Telehealth with real time interactive synchronized audio and video communication. The patient provided written consent for treatment. The patient understands their rights, the HIPAA risks and that they will be charged accordingly for the services rendered. The patient was seen via telemedicine while they were at: [facility] This telemedicine visit was conducted due to: Incapacitation Chief Complaint right low back pain and right leg pain History of Present Illness Oswestry Disability Form AM Behavior: Same PM Pain Intensity: The pain is fairly severe at the moment PM Opioid prescription status Date: 11/01/17 Day Progresses Behavior: Same PM Personal Care: I need help every day in most aspects of self-care PM Last utox: none PM Behavior: Same PM Sitting: Pain prevents me from sitting at all PM Last ORT/Med Mgmt Agreement: 02/14/24 Pain location and laterality: right low back pain and right leg pain PM Pain Lifting: I can lift very light weights Pain quality: Unable to describe PM Walking: I can only walk using a stick or crutches Pain Pattern: Constant PM Standing: Pain prevents me from standing for more than 10 minutes Pain rate at rest: 6 PM Sleeping: Because of pain I have less than 4 hours of sleep Pain rate with activity: 8 PM Sex Life: My sex life is normal and causes no pain/NA Bending: Aggravating PM Social Life: Pain has restricted my social life to my home Cold/Ice: Alleviating PM Traveling: Pain prevents me from traveling except to receive treatment Lifting: Aggravating PM Oswestry Score: 72 Medications: Alleviating PM Oswestry Score Interpretation: 61% to 80% Crippled: Back pain on impinges on all aspects of the patient's life. Positive intervention is required. Pushing/Pulling: Aggravating Sitting: Alleviating Standing: Aggravating Walking: Aggravating Sensory impairment location: numbness right leg Date Tens: NO Date Chiropractor: HX Effective Chiropractor: NO HELP Date PT: presently Frequency PT: 1x wk Effective PT: MADE IT WORSE, NO HELP Date Injections: HX WITH KINDL IN [place] 2008 Effective Injections: cervical RFA 2018, helpful Date Surgery: NO Date Other: NECK BRACE Comments Other: HELPS Recent testing: Yes Recent testing type: MRI L/s and CT L/s Loss of bladder/bowel: Denies Demeanor: Pleasant Distress: Moderate Appearance: Appropriate Cognitive impairment: No Feels safe at home: Yes Suicidal/homicidal ideation: No Review of Systems A review of systems was conducted and noted to be negative to the patient's presenting complaint unless delineated in the HPI. Full details are available on form [id number] completed by the patient and added to the record on today's date. Constitutional-no fevers chills unexplained weight loss ENMT-no dysphagia Integumentary-no rash Eyes-no diplopia Gastrointestinal-no nausea vomiting diarrhea Respiratory-no shortness of breath Cardiac-no chest pain Hematologic-no unusual bruising Genitourinary-no dysuria Physical Exam Vitals & Measurements HR: 73 (Peripheral) RR: 16 BP: 105/69 HT: 167 cm WT: 87 kg (Estimated) BMI: 31.2 MUSCULOSKELETAL: Pain recreates with the patient's meniscal right straight leg raising. Additional Vitals No qualifying data available. Assessment/Plan Patient presents with right leg pain. Incapacitated outlying facility pursuant to pain weakness. MRI lumbar spine outlying facility 01/24/2004 raises concern for broad-based disc protrusion is appreciated is more prominent to the right and does extend and neuroforaminal. As a result there is at least moderate in severity right foraminal stenosis. At the L5-S1 level Clinical impression: 1. Lumbar stenosis neurogenic claudication 2. Sciatica This painful medical condition is failed to respond to conservative therapy including 6 weeks of physician directed core stretching and strengthening responding incompletely and suboptimally to oral analgesic therapy. Medical necessity is established for: 1. Right L5, S1 transforaminal posterior injection fluoroscopic guidance 2. Right sciatic nerve injection 3. Oral analgesic regimen management at [facility] pursuant to proximity We have discussed benefits risks and alternatives. We discussed salient features of opioid risk management including the potential for tolerance, dependence and addiction as well as behaviors to avoid including operating machinery, including driving while impaired. After addressing all questions , the patient agreed to proceed. We have requested a return visit after the requested. We have discussed benefits risks and alternatives of treatment. All concerns were addressed and questions were answered. We will follow-up with our patient after the requested. We will keep you abreast of their progress. Thank you for allowing us to to render an opinion in the care of your kind patient. Please do no (more content not included)... [facility] Summary Purpose Family History No Family History Records FoundNo Family History Records FoundNo Family History Records FoundNo Family History Records Found Advance Directives No Advanced Directives Records FoundNo Advanced Directives Records FoundNo Advanced Directives Records FoundNo Advanced Directives Records Found Additional Source Comments INFORMATION SOURCE (unrecogn ized section and content) DATE CREATED AUTHOR 05/07/2022 [facility] DATE CREATED AUTHOR AUTHOR'S ORGANIZ ATION 02/06/2024 [facility] DATE CREATED AUTHOR AUTHOR'S ORGANIZ ATION 05/14/2024 [facility] DATE CREATED AUTHOR AUTHOR'S ORGANIZ ATION 05/28/2024 [facility] FOR RECORDS PERTAINING TO PATIENTS WHO ARE OR HAVE BEEN ENROLLED IN A CHEMICAL DEPENDENCY/SUBSTANCEABUSE PROGRAM, SOME INFORMATION MAY BE OMITTED. This clinical summary was aggregated from multiple sources. Caution should be exercised in using it in the provision of clinical care. This summary normalizes information from multiple sources, and as a consequence, information in this document may materially change the coding, format and clinical context of patient data. In addition, data may be omitted in some cases. CLINICAL DECISIONS SHOULD BE BASED ON THE PRIMARY CLINICAL RECORDS. [facility] [employer] [facility]. provides no warranty or guarantee of the accuracy or completeness of information in this document.
== END 2024-06-10 11:05 | disposition home or self-care (01) ==
LOC: MAMMO 11:04
PROVIDERS: PCP Physician Assistant
DX: Z12.31 Encounter for screening mammogram for malignant neoplasm of breast (principal); Z80.6 Family history of leukemia
CPT/HCPCS: 77063; 77067